=== PATIENT | male | born 1960 | race Asian ===

== ENCOUNTER 2018-10-22 06:46 | Day surgery (SDC) | payer OTHER ==
[2018-10-22] MEDS ORDERED: FENTAnyl 50 MCG/ML VIAL (10:02)
[2018-10-22] MEDS ORDERED: MIDAZOLAM 1 MG/ML 2 ML INJ ×2 (10:02)
== END 2018-10-22 12:31 | disposition home or self-care (01) ==
LOC: GIL 06:46
DX: Z12.11 Encounter for screening for malignant neoplasm of colon (principal); K64.8 Other hemorrhoids; E11.9 Type 2 diabetes mellitus without complications
CPT/HCPCS: 45378; 82962

== ENCOUNTER 2018-10-31 11:50 | Inpatient (IN) | payer OTHER ==
[2018-10-31] MEDS: SODIUM CHLORIDE 0.9% 1L BAG IV* (13:03)
[2018-10-31] MEDS: CEFTRIAXONE 1 GM/50 ML (PMX) 50 ML IVPB (13:03)
[2018-10-31 13:13] LABS: ADD MAN DIFF? NO
[2018-10-31 13:16] LABS: WHITE BLOOD COUNT 7.6 10^3/ul (4.8-10.8)
[2018-10-31 13:16] LABS: ABNORMAL IP MESSAGE 1; BASOPHILS % 0.5 % (0.0-2.0); EOSINOPHILS % 0.4 % (0.0-7.0); HEMATOCRIT 31.6 % (42.0-52.0); HEMOGLOBIN 10.2 g/dl (14.0-18.0); LYMPHOCYTES # 1.8 10^3/ul (0.8-2.9); LYMPHOCYTES % 23.2 % (15.0-51.0); MEAN CORPUSCULAR HEMOGLOBIN 26.6 pg (29.0-33.0); MEAN CORPUSCULAR HGB CONC 32.3 g/dl (32.0-37.0); MEAN CORPUSCULAR VOLUME 82.3 fl (82.0-101.0); MEAN PLATELET VOLUME 10.4 fl (7.4-10.4); MONOCYTE # 1.7 10^3/ul (0.3-0.9); NEUTROPHIL # 4.1 10^3/ul (1.6-7.5); NEUTROPHILS % 53.4 % (39.0-77.0); PLATELET COUNT 190 10^3/UL (140-415); POSITIVE DIFF @See below; RED BLOOD COUNT 3.84 10^6/ul (4.70-6.10); RED CELL DISTRIBUTION WIDTH 16.1 % (11.5-14.5)
[2018-10-31 13:26] LABS: ADD UMIC YES; UR ASCORBIC ACID NEGATIVE (NEGATIVE); UR BACTERIA FEW /HPF (NONE SEEN); UR BILIRUBIN (Dip) NEGATIVE (NEGATIVE); UR BLOOD (Dip) 1+ mg/dL (NEGATIVE); UR CLARITY CLEAR (CLEAR); UR COLOR AMBER (YELLOW); UR GLUCOSE (Dip) NEGATIVE (NEGATIVE); UR KETONES (Dip) TRACE mg/dL (NEGATIVE); UR LEUKOCYTE ESTERASE (Dip) NEGATIVE Leu/ul (NEGATIVE); UR MUCUS FEW /HPF (NONE SEEN); UR NITRITE (Dip) NEGATIVE (NEGATIVE); UR RBC 3 /HPF (0-5); UR SPECIFIC GRAVITY (Dip) 1.015 (1.003-1.030); UR TOTAL PROTEIN (Dip) NEGATIVE (NEGATIVE); UR UROBILINOGEN (Dip) NEGATIVE (NEGATIVE); UR WBC 1 /HPF (0-5)
[2018-10-31 13:35] LABS: PROTIME 13.3 Sec (11.9-14.9)
[2018-10-31 13:36] LABS: PARTIAL THROMBOPLASTIN TIME 26.9 Sec (23.0-35.0)
[2018-10-31 13:37] LABS: ALANINE AMINOTRANSFERASE 20 IU/L (13-69); ALBUMIN 4.1 g/dl (3.3-4.9); ALBUMIN/GLOBULIN RATIO 0.91; ALKALINE PHOSPHATASE 166 IU/L (42-121); ANION GAP 9 (5-13); ASPARTATE AMINO TRANSFERASE 43 IU/L (15-46); BILIRUBIN,INDIRECT 0.6 mg/dl (0-1.1); BILIRUBIN,TOTAL 0.6 mg/dl (0.2-1.3); BLOOD UREA NITROGEN 15 mg/dl (7-20); CALCIUM 10.6 mg/dl (8.4-10.2); CARBON DIOXIDE 28 mmol/L (21-31); CHLORIDE 97 mmol/L (97-110); CREATININE 0.84 mg/dl (0.61-1.24); Estimated GFR > 60 mL/min (>60); GLUCOSE 201 mg/dl (70-220); LIPASE 98 U/L (23-300); POTASSIUM 4.7 mmol/L (3.5-5.1); SODIUM 134 mmol/L (135-144); TOTAL PROTEIN 8.6 g/dl (6.1-8.1)
[2018-10-31 13:49] LABS: TROPONIN-I < 0.012 ng/ml (0.000-0.120)
[2018-10-31] MEDS: SOD CHLORIDE 0.9% 1,000 ML IV ×3 (15:26→23:28)
[2018-10-31] MEDS ORDERED: MAGNESIUM HYDROXIDE 30ML CUP PO (15:30)
[2018-10-31] MEDS ORDERED: ACETAMINOPHEN 325 MG TAB PO (15:30)
[2018-10-31] MEDS ORDERED: NACL 0.9% 3 ML SYG IV (15:30)
[2018-10-31] MEDS ORDERED: morphine 4 MG/ML VIAL IV (15:30)
[2018-10-31] MEDS ORDERED: ACETAMINOPHEN 650 MG SUPP PR (15:30)
[2018-10-31] MEDS ORDERED: NA PHOSPHATE/BIPHOS 133 ML ENEMA PR (15:30)
[2018-10-31] MEDS ORDERED: GLUCAGON 1 MG INJ IM (16:30)
[2018-10-31] MEDS ORDERED: GLUCOSE GEL 15 GRAM TUBE PO ×2 (16:30)
[2018-10-31] MEDS ORDERED: DEXTROSE 50% 50 ML SYRINGE IV ×2 (16:30)
[2018-10-31] MEDS ORDERED: GLUCOSE GEL 15 GRAM TUBE BUCCAL (16:30)
[2018-10-31 18:00] LABS: LACTIC ACID 2.1 mmol/L (0.5-2.0)
[2018-10-31] MEDS: FAMOTIDINE 20 MG TAB PO ×2 (21:00→21:42)
[2018-10-31] MEDS: IBUPROFEN 600 MG TAB PO (21:43)
[2018-10-31] MEDS: SODIUM CHLORIDE 0.9% 1L BAG IV (21:45)
[2018-10-31 21:47] LABS: LACTIC ACID 1.7 mmol/L (0.5-2.0)
[2018-10-31] MEDS: INSULIN ASPART [NOVOLOG] 3 ML PEN SC (22:01)
[2018-11-01] MEDS: ACCU-CHEK XX (02:30)
[2018-11-01] MEDS: SOD CHLORIDE 0.9% 1,000 ML IV ×3 (05:42→23:40)
[2018-11-01 06:16] LABS: HEMATOCRIT 28.7 % (42.0-52.0); HEMOGLOBIN 9.1 g/dl (14.0-18.0); MEAN CORPUSCULAR HEMOGLOBIN 26.7 pg (29.0-33.0); MEAN CORPUSCULAR HGB CONC 31.7 g/dl (32.0-37.0); MEAN CORPUSCULAR VOLUME 84.2 fl (82.0-101.0); MEAN PLATELET VOLUME 9.6 fl (7.4-10.4); PLATELET COUNT 158 10^3/UL (140-415); POSITIVE DIFF @See below; RED BLOOD COUNT 3.41 10^6/ul (4.70-6.10); RED CELL DISTRIBUTION WIDTH 16.3 % (11.5-14.5)
[2018-11-01 06:16] LABS: WHITE BLOOD COUNT 5.7 10^3/ul (4.8-10.8)
[2018-11-01 06:23] LABS: ALANINE AMINOTRANSFERASE 20 IU/L (13-69); ALBUMIN 3.2 g/dl (3.3-4.9); ALKALINE PHOSPHATASE 129 IU/L (42-121); ANION GAP 7 (5-13); ASPARTATE AMINO TRANSFERASE 30 IU/L (15-46); BILIRUBIN,INDIRECT 0.6 mg/dl (0-1.1); BILIRUBIN,TOTAL 0.6 mg/dl (0.2-1.3); BLOOD UREA NITROGEN 9 mg/dl (7-20); CALCIUM 9.5 mg/dl (8.4-10.2); CARBON DIOXIDE 28 mmol/L (21-31); CHLORIDE 105 mmol/L (97-110); CREATININE 0.71 mg/dl (0.61-1.24); Estimated GFR > 60 mL/min (>60); GLUCOSE 160 mg/dl (70-220); MAGNESIUM 1.4 mg/dl (1.7-2.5); PHOSPHORUS 3.6 mg/dl (2.5-4.9); POTASSIUM 3.6 mmol/L (3.5-5.1); SODIUM 140 mmol/L (135-144); TOTAL PROTEIN 7.2 g/dl (6.1-8.1)
[2018-11-01 06:32] LABS: TROPONIN-I < 0.012 ng/ml (0.000-0.120)
[2018-11-01 06:39] LABS: HEMOGLOBIN A1C 6.1 % (0-5.9)
[2018-11-01 06:48] LABS: IRON 72 ug/dl (35-150)
[2018-11-01 06:57] LABS: ADD MAN DIFF? YES
[2018-11-01 06:58] LABS: FREE T4 (FREE THYROXINE) 3.84 ng/dl (0.64-1.79); TRIIODOTHYRONINE 1.07 ng/ml (0.97-1.69)
[2018-11-01 06:58] LABS: % IRON SATURATION 28 % SAT (22-52); THYROID STIMULATING HORMONE < 0.015 MIU/L (0.465-4.680); TOTAL IRON BINDING CAPACITY 256 ug/dl (241-421)
[2018-11-01] MEDS: FAMOTIDINE 20 MG TAB PO ×2 (08:05→20:42)
[2018-11-01] MEDS: INSULIN ASPART [NOVOLOG] 3 ML PEN SC ×4 (08:09→20:49)
[2018-11-01] MEDS: ENOXAPARIN 40 MG/0.4 ML SYG SC (08:10)
[2018-11-01 08:23] LABS: ANISOCYTOSIS 1+ (0-0); EOSINOPHILS % (M) 3 % (0-7); GIANT THROMBO% (M) 3 % (0-0); HYPOCHROMASIA 1+ (0-0); LYMPHOCYTES #M 1.9 10^3/ul (0.8-2.9); LYMPHOCYTES % (M) 34 % (15-51); MONOCYTES % (M) 18 % (0-11); PLATELET ESTIMATE NORMAL; POIKILOCYTOSIS 1+ (0-0); POLYCHROMASIA 3+ (0-0); PROMYELOCYTES % (M) 1 % (0-0); SEGMENTED NEUTROPHILS (M) % 44 % (39-77); SMUDGE%M 13 % (0-0)
[2018-11-01] MEDS: METHIMAZOLE 5 MG TAB PO ×2 (17:22→20:42)
[2018-11-01] MEDS: ONDANSETRON 4 MG INJ IV (19:28)
[2018-11-01] MEDS: HYDROCODONE/APAP (5/325) TAB PO (19:32)
[2018-11-02] MEDS: MAGNESIUM SULFATE 3 GM in SOD CHLORIDE 0.9% 100 ML IVPB (00:19)
[2018-11-02] MEDS: ACCU-CHEK XX (02:30)
[2018-11-02 05:41] LABS: ADD MAN DIFF? NO
[2018-11-02 05:51] LABS: BASOPHILS % 0.3 % (0.0-2.0); EOSINOPHILS # 0.1 10^3/ul (0.0-0.5); EOSINOPHILS % 2.1 % (0.0-7.0); HEMATOCRIT 29.9 % (42.0-52.0); HEMOGLOBIN 9.6 g/dl (14.0-18.0); LYMPHOCYTES # 2.1 10^3/ul (0.8-2.9); LYMPHOCYTES % 33.5 % (15.0-51.0); MEAN CORPUSCULAR HEMOGLOBIN 26.7 pg (29.0-33.0); MEAN CORPUSCULAR HGB CONC 32.1 g/dl (32.0-37.0); MEAN CORPUSCULAR VOLUME 83.1 fl (82.0-101.0); MEAN PLATELET VOLUME 10.2 fl (7.4-10.4); MONOCYTE # 1.3 10^3/ul (0.3-0.9); MONOCYTES % 21.4 % (0.0-11.0); NEUTROPHIL # 2.7 10^3/ul (1.6-7.5); NEUTROPHILS % 42.2 % (39.0-77.0); PLATELET COUNT 178 10^3/UL (140-415); RED CELL DISTRIBUTION WIDTH 16.1 % (11.5-14.5)
[2018-11-02 05:51] LABS: WHITE BLOOD COUNT 6.3 10^3/ul (4.8-10.8)
[2018-11-02 06:13] LABS: ANION GAP 10 (5-13); BLOOD UREA NITROGEN 8 mg/dl (7-20); CARBON DIOXIDE 28 mmol/L (21-31); CHLORIDE 100 mmol/L (97-110); CREATININE 0.73 mg/dl (0.61-1.24); Estimated GFR > 60 mL/min (>60); GLUCOSE 127 mg/dl (70-220); MAGNESIUM 2.1 mg/dl (1.7-2.5); POTASSIUM 4.3 mmol/L (3.5-5.1); SODIUM 138 mmol/L (135-144)
[2018-11-02] MEDS: SOD CHLORIDE 0.9% 1,000 ML IV ×4 (07:28→22:44)
[2018-11-02 07:36] LABS: C-REACTIVE PROTEIN 5.7 mg/dl (0.0-0.9)
[2018-11-02] MEDS: INSULIN ASPART [NOVOLOG] 3 ML PEN SC ×4 (08:00→20:37)
[2018-11-02] MEDS: METHIMAZOLE 5 MG TAB PO ×2 (08:03→20:34)
[2018-11-02] MEDS: FAMOTIDINE 20 MG TAB PO ×2 (08:03→20:31)
[2018-11-02] MEDS: ENOXAPARIN 40 MG/0.4 ML SYG SC (08:05)
[2018-11-02 08:12] LABS: ERYTHROCYTE SEDIMENTATION RATE 110 mm/Hr (0-20)
[2018-11-03] MEDS: ACCU-CHEK XX (02:00)
[2018-11-03] MEDS: SOD CHLORIDE 0.9% 1,000 ML IV ×2 (04:19→13:06)
[2018-11-03] MEDS: INSULIN ASPART [NOVOLOG] 3 ML PEN SC ×4 (08:00→20:54)
[2018-11-03] MEDS: FAMOTIDINE 20 MG TAB PO ×2 (08:39→20:43)
[2018-11-03] MEDS: METHIMAZOLE 5 MG TAB PO ×2 (08:40→20:44)
[2018-11-03] MEDS: ENOXAPARIN 40 MG/0.4 ML SYG SC (08:42)
[2018-11-03] MEDS: DOCUSATE SODIUM 100 MG CAP PO ×2 (09:01→20:52)
[2018-11-03] MEDS: BISACODYL (EC) 5 MG TAB PO (09:01)
[2018-11-03] MEDS: BISACODYL 10 MG SUPP PR (12:34)
[2018-11-03 19:31] LABS: NIL 0.03 IU/mL; QUANTIFERON(R)-TB GOLD POSITIVE (NEGATIVE); TB-NIL 1.12 IU/mL; TB2-NIL 1.16 IU/mL
[2018-11-04] MEDS: ACCU-CHEK XX (02:00)
[2018-11-04] MEDS: FAMOTIDINE 20 MG TAB PO ×2 (08:15→20:28)
[2018-11-04] MEDS: INSULIN ASPART [NOVOLOG] 3 ML PEN SC ×4 (08:19→20:34)
[2018-11-04] MEDS: ENOXAPARIN 40 MG/0.4 ML SYG SC (08:19)
[2018-11-04] MEDS: METHIMAZOLE 5 MG TAB PO ×2 (08:21→20:28)
[2018-11-04] MEDS: BISACODYL (EC) 5 MG TAB PO (08:25)
[2018-11-04] MEDS: metFORMIN 500 MG TAB PO (17:37)
[2018-11-05] MEDS: ACCU-CHEK XX (02:00)
[2018-11-05] MEDS: FAMOTIDINE 20 MG TAB PO (09:05)
[2018-11-05] MEDS: metFORMIN 500 MG TAB PO (09:05)
[2018-11-05] MEDS: METHIMAZOLE 5 MG TAB PO (09:05)
[2018-11-05] MEDS: INSULIN ASPART [NOVOLOG] 3 ML PEN SC ×2 (09:07→13:33)
[2018-11-05] MEDS: ENOXAPARIN 40 MG/0.4 ML SYG SC (09:08)
== END 2018-11-05 15:30 | disposition home or self-care (01) | DRG 644 ==
LOC: E/R 11:50 → 2NE 14:02
PROVIDERS: Internal Medicine
DX: E05.00 Thyrotoxicosis with diffuse goiter without thyrotoxic crisis or storm (principal); K92.0 Hematemesis; R62.7 Adult failure to thrive; R11.2 Nausea with vomiting, unspecified; Z68.24 Body mass index [BMI] 24.0-24.9, adult; R63.4 Abnormal weight loss; R79.89 Other specified abnormal findings of blood chemistry; E11.9 Type 2 diabetes mellitus without complications; D64.9 Anemia, unspecified
CPT/HCPCS: 36415; 70450; 71045; 71250; 74176; 80048; 80053; 81001; 82728; 82962; 83036; 83540; 83605; 83690; 83735; 84100; 84439; 84443; 84480; 84484; 85025; 85610; 85651; 85730; 86140; 86480; 87040; 87086; 87338; 87400; 93005; 93306; 96365; 99291-25

== ENCOUNTER 2018-11-17 16:34 | Inpatient (IN) | payer OTHER ==
[2018-11-17 18:43] LABS: ABNORMAL IP MESSAGE 1; HEMATOCRIT 33.3 % (42.0-52.0); HEMOGLOBIN 10.3 g/dl (14.0-18.0); MEAN CORPUSCULAR HEMOGLOBIN 25.6 pg (29.0-33.0); MEAN CORPUSCULAR HGB CONC 30.9 g/dl (32.0-37.0); MEAN CORPUSCULAR VOLUME 82.6 fl (82.0-101.0); MEAN PLATELET VOLUME 10.1 fl (7.4-10.4); PLATELET COUNT 186 10^3/UL (140-415); POSITIVE DIFF @See below; RED BLOOD COUNT 4.03 10^6/ul (4.70-6.10); RED CELL DISTRIBUTION WIDTH 15.5 % (11.5-14.5)
[2018-11-17 18:43] LABS: WHITE BLOOD COUNT 8.1 10^3/ul (4.8-10.8)
[2018-11-17 18:46] LABS: PROTIME 13.3 Sec (11.9-14.9)
[2018-11-17 18:47] LABS: ADD MAN DIFF? YES; PARTIAL THROMBOPLASTIN TIME 29.4 Sec (23.0-35.0)
[2018-11-17 18:51] LABS: ALANINE AMINOTRANSFERASE 17 IU/L (13-69); ALBUMIN 3.6 g/dl (3.3-4.9); ALBUMIN/GLOBULIN RATIO 0.81; ALKALINE PHOSPHATASE 170 IU/L (42-121); AMYLASE 67 U/L (11-123); ANION GAP 11 (5-13); ASPARTATE AMINO TRANSFERASE 43 IU/L (15-46); BILIRUBIN,INDIRECT 0.3 mg/dl (0-1.1); BILIRUBIN,TOTAL 0.3 mg/dl (0.2-1.3); BLOOD UREA NITROGEN 12 mg/dl (7-20); CALCIUM 10.7 mg/dl (8.4-10.2); CARBON DIOXIDE 31 mmol/L (21-31); CHLORIDE 97 mmol/L (97-110); CREATININE 0.85 mg/dl (0.61-1.24); Estimated GFR > 60 mL/min (>60); GLUCOSE 110 mg/dl (70-220); LIPASE 71 U/L (23-300); POTASSIUM 4.3 mmol/L (3.5-5.1); SODIUM 139 mmol/L (135-144)
[2018-11-17 19:02] LABS: TROPONIN-I < 0.012 ng/ml (0.000-0.120)
[2018-11-17] MEDS: SODIUM CHLORIDE 0.9% 1L BAG IV* (19:06)
[2018-11-17] MEDS: ACETAMINOPHEN 500 MG TAB PO (19:11)
[2018-11-17] MEDS: CEFEPIME 2GM/50 ML (PMX) 50 ML IVPB (19:47)
[2018-11-17] MEDS: VANCOMYCIN 1 GM (PMX) 250 ML IVPB (20:17)
[2018-11-17 20:33] LABS: LYMPHOCYTES #M 1.1 10^3/ul (0.8-2.9); LYMPHOCYTES % (M) 14 % (15-51); MONOCYTES % (M) 13 % (0-11); PLATELET ESTIMATE NORMAL; REACTIVE LYMPHOCYTES #M 0.2 10^3/ul (0.0-0.0); REACTIVE LYMPHOCYTES% (M) 3 % (0-0); SEGMENTED NEUTROPHILS (M) % 70 % (39-77); SMUDGE%M 6 % (0-0)
[2018-11-17 20:41] LABS: FREE THYROXINE INDEX (Calc) 11.24 ug/ml (0.65-3.89); T3 UPTAKE 61.4 % (23.5-40.5); T4 (THYROXINE) 18.3 ug/dl (5.5-11.0)
[2018-11-17 20:54] LABS: ADD UMIC NO; UR ASCORBIC ACID NEGATIVE (NEGATIVE); UR BILIRUBIN (Dip) NEGATIVE (NEGATIVE); UR BLOOD (Dip) NEGATIVE (NEGATIVE); UR CLARITY CLEAR (CLEAR); UR COLOR YELLOW (YELLOW); UR GLUCOSE (Dip) NEGATIVE (NEGATIVE); UR KETONES (Dip) TRACE mg/dL (NEGATIVE); UR LEUKOCYTE ESTERASE (Dip) NEGATIVE Leu/ul (NEGATIVE); UR NITRITE (Dip) NEGATIVE (NEGATIVE); UR TOTAL PROTEIN (Dip) NEGATIVE (NEGATIVE); UR UROBILINOGEN (Dip) NEGATIVE (NEGATIVE)
[2018-11-17 21:45] LABS: THYROID STIMULATING HORMONE < 0.015 MIU/L (0.465-4.680)
[2018-11-17] MEDS: PROPRANOLOL 1 MG INJ IV (22:50)
[2018-11-17] MEDS ORDERED: ONDANSETRON 4 MG INJ IV (23:00)
[2018-11-17] MEDS ORDERED: ACETAMINOPHEN 325 MG TAB PO (23:00)
[2018-11-17] MEDS ORDERED: DOCUSATE SODIUM 100 MG CAP PO (23:30)
[2018-11-17] MEDS ORDERED: NACL 0.9% 3 ML SYG IV (23:30)
[2018-11-17] MEDS ORDERED: VANCOMYCIN IV PER PHARMACY XX (23:30)
[2018-11-18] MEDS ORDERED: METHIMAZOLE 5 MG TAB PO (02:00)
[2018-11-18] MEDS: METHIMAZOLE 5 MG TAB PO (02:00)
[2018-11-18] MEDS: ONDANSETRON 4 MG INJ IV (03:36)
[2018-11-18] MEDS: VANCOMYCIN HCL 1.25 GM in SOD CHLORIDE 0.9% 250 ML IVPB ×2 (04:16→15:11)
[2018-11-18] MEDS: PROPRANOLOL 40 MG TAB PO (05:28)
[2018-11-18] MEDS ORDERED: GLUCAGON 1 MG INJ IM (06:30)
[2018-11-18] MEDS ORDERED: GLUCOSE GEL 15 GRAM TUBE BUCCAL (06:30)
[2018-11-18] MEDS ORDERED: GLUCOSE GEL 15 GRAM TUBE PO ×2 (06:30)
[2018-11-18] MEDS ORDERED: DEXTROSE 50% 50 ML SYRINGE IV ×2 (06:30)
[2018-11-18 06:46] LABS: ABNORMAL IP MESSAGE 1; HEMATOCRIT 28.1 % (42.0-52.0); MEAN CORPUSCULAR HEMOGLOBIN 26.5 pg (29.0-33.0); MEAN CORPUSCULAR VOLUME 82.9 fl (82.0-101.0); MEAN PLATELET VOLUME 9.9 fl (7.4-10.4); PLATELET COUNT 157 10^3/UL (140-415); POSITIVE DIFF @See below; RED BLOOD COUNT 3.39 10^6/ul (4.70-6.10); RED CELL DISTRIBUTION WIDTH 15.7 % (11.5-14.5)
[2018-11-18 06:46] LABS: WHITE BLOOD COUNT 7.2 10^3/ul (4.8-10.8)
[2018-11-18 06:52] LABS: ADD MAN DIFF? YES
[2018-11-18 07:38] LABS: ALANINE AMINOTRANSFERASE 24 IU/L (13-69); ALBUMIN 2.8 g/dl (3.3-4.9); ALBUMIN/GLOBULIN RATIO 0.73; ALKALINE PHOSPHATASE 120 IU/L (42-121); ANION GAP 4 (5-13); ASPARTATE AMINO TRANSFERASE 33 IU/L (15-46); BILIRUBIN,INDIRECT 0.2 mg/dl (0-1.1); BILIRUBIN,TOTAL 0.2 mg/dl (0.2-1.3); BLOOD UREA NITROGEN 10 mg/dl (7-20); CALCIUM 9.6 mg/dl (8.4-10.2); CARBON DIOXIDE 30 mmol/L (21-31); CHLORIDE 104 mmol/L (97-110); CREATININE 0.65 mg/dl (0.61-1.24); Estimated GFR > 60 mL/min (>60); GLUCOSE 123 mg/dl (70-220); SODIUM 138 mmol/L (135-144); TOTAL PROTEIN 6.6 g/dl (6.1-8.1)
[2018-11-18] MEDS: INSULIN ASPART [NOVOLOG] 3 ML PEN SC ×4 (07:55→21:00)
[2018-11-18 07:59] LABS: MAGNESIUM 1.1 mg/dl (1.7-2.5)
[2018-11-18 08:18] LABS: FREE T4 (FREE THYROXINE) 5.12 ng/dl (0.64-1.79)
[2018-11-18 08:35] LABS: C-REACTIVE PROTEIN 6.2 mg/dl (0.0-0.9)
[2018-11-18] MEDS: MAGNESIUM SULFATE 4 GM/100 ML 100 ML IVPB (09:17)
[2018-11-18] MEDS: PROPRANOLOL 20 MG TAB PO ×3 (09:18→21:43)
[2018-11-18] MEDS: CEFEPIME 2GM/50 ML (PMX) 50 ML IVPB ×2 (09:18→21:42)
[2018-11-18 09:19] LABS: EOSINOPHILS % (M) 1 % (0-7); GIANT THROMBO% (M) 5 % (0-0); LYMPHOCYTES #M 0.9 10^3/ul (0.8-2.9); LYMPHOCYTES % (M) 13 % (15-51); MONOCYTE #M 1.2 10^3/ul (0.3-0.9); MONOCYTES % (M) 17 % (0-11); MYELOCYTES % (M) 1 % (0-0); REACTIVE LYMPHOCYTES #M 0.5 10^3/ul (0.0-0.0); REACTIVE LYMPHOCYTES% (M) 7 % (0-0); SEGMENTED NEUTROPHILS (M) % 61 % (39-77); SMUDGE%M 65 % (0-0)
[2018-11-18 09:22] LABS: PLATELET ESTIMATE NORMAL
[2018-11-18 09:23] LABS: ERYTHROCYTE SEDIMENTATION RATE 79 mm/Hr (0-20)
[2018-11-18] MEDS: PROPYLTHIOURACIL 50 MG TAB PO (14:08)
[2018-11-18] MEDS: DOCUSATE SODIUM 100 MG CAP PO (21:43)
[2018-11-19] MEDS: ACCU-CHEK XX (02:00)
[2018-11-19] MEDS: VANCOMYCIN HCL 1.25 GM in SOD CHLORIDE 0.9% 250 ML IVPB ×2 (03:09→14:57)
[2018-11-19] MEDS: PROPRANOLOL 20 MG TAB PO ×4 (03:18→21:38)
[2018-11-19 06:53] LABS: WHITE BLOOD COUNT 6.8 10^3/ul (4.8-10.8)
[2018-11-19 06:53] LABS: ABNORMAL IP MESSAGE 1; HEMATOCRIT 27.9 % (42.0-52.0); MEAN CORPUSCULAR HEMOGLOBIN 26.1 pg (29.0-33.0); MEAN CORPUSCULAR HGB CONC 32.3 g/dl (32.0-37.0); MEAN CORPUSCULAR VOLUME 80.9 fl (82.0-101.0); MEAN PLATELET VOLUME 9.6 fl (7.4-10.4); PLATELET COUNT 156 10^3/UL (140-415); POSITIVE DIFF @See below; RED BLOOD COUNT 3.45 10^6/ul (4.70-6.10); RED CELL DISTRIBUTION WIDTH 15.4 % (11.5-14.5)
[2018-11-19 06:56] LABS: ADD MAN DIFF? YES
[2018-11-19 07:10] LABS: ANION GAP 7 (5-13); BLOOD UREA NITROGEN 8 mg/dl (7-20); CALCIUM 9.6 mg/dl (8.4-10.2); CARBON DIOXIDE 31 mmol/L (21-31); CHLORIDE 97 mmol/L (97-110); CREATININE 0.67 mg/dl (0.61-1.24); Estimated GFR > 60 mL/min (>60); GLUCOSE 240 mg/dl (70-220); MAGNESIUM 1.7 mg/dl (1.7-2.5); POTASSIUM 4.1 mmol/L (3.5-5.1); SODIUM 135 mmol/L (135-144)
[2018-11-19 07:13] LABS: HEMOGLOBIN A1C 5.6 % (0-5.9)
[2018-11-19 08:15] LABS: ANISOCYTOSIS 1+ (0-0); BAND NEUTROPHILS % (M) 1 % (0-4); BASOPHILS % (M) 1 % (0-2); EOSINOPHILS % (M) 1 % (0-7); HYPOCHROMASIA 2+ (0-0); LYMPHOCYTES #M 1.4 10^3/ul (0.8-2.9); LYMPHOCYTES % (M) 21 % (15-51); MICROCYTOSIS 1+ (0-0); MONOCYTE #M 1.9 10^3/ul (0.3-0.9); MONOCYTES % (M) 28 % (0-11); MYELOCYTES % (M) 1 % (0-0); PLATELET ESTIMATE NORMAL; POIKILOCYTOSIS 1+ (0-0); POLYCHROMASIA 3+ (0-0); REACTIVE LYMPHOCYTES% (M) 1 % (0-0); SEG NEUT #M 3.1 10^3/ul (1.6-7.5); SEGMENTED NEUTROPHILS (M) % 46 % (39-77); SMUDGE%M 11 % (0-0); TARGET CELLS 1+ (0-0)
[2018-11-19] MEDS: DOCUSATE SODIUM 100 MG CAP PO ×2 (09:14→21:37)
[2018-11-19] MEDS: INSULIN GLARGINE [LANTus] (100 UNITS/ML) SYG SC (09:15)
[2018-11-19] MEDS: INSULIN ASPART [NOVOLOG] 3 ML PEN SC ×4 (09:16→21:52)
[2018-11-19] MEDS: CEFEPIME 2GM/50 ML (PMX) 50 ML IVPB ×2 (09:20→21:38)
[2018-11-19] MEDS: METHIMAZOLE 5 MG TAB PO (09:20)
[2018-11-19 12:22] LABS: THYROID MICROSOMAL ANTIBODY <1 IU/mL (<9)
[2018-11-19] MEDS: PROPYLTHIOURACIL 50 MG TAB PO (14:28)
[2018-11-19 15:23] LABS: VANCOMYCIN,TROUGH 13.2 ug/ml (10.0-20.0)
[2018-11-19] MEDS: BISACODYL (EC) 5 MG TAB PO (21:37)
[2018-11-20] MEDS: ACCU-CHEK XX ×3 (02:00→21:17)
[2018-11-20] MEDS: VANCOMYCIN HCL 1.25 GM in SOD CHLORIDE 0.9% 250 ML IVPB ×2 (03:17→14:44)
[2018-11-20] MEDS: PROPRANOLOL 20 MG TAB PO ×4 (03:18→20:54)
[2018-11-20 07:11] LABS: WHITE BLOOD COUNT 6.5 10^3/ul (4.8-10.8)
[2018-11-20 07:11] LABS: ABNORMAL IP MESSAGE 1; ADD MAN DIFF? YES; HEMATOCRIT 29.3 % (42.0-52.0); HEMOGLOBIN 9.3 g/dl (14.0-18.0); MEAN CORPUSCULAR HGB CONC 31.7 g/dl (32.0-37.0); MEAN CORPUSCULAR VOLUME 81.8 fl (82.0-101.0); MEAN PLATELET VOLUME 10.1 fl (7.4-10.4); PLATELET COUNT 152 10^3/UL (140-415); POSITIVE DIFF @See below; RED BLOOD COUNT 3.58 10^6/ul (4.70-6.10); RED CELL DISTRIBUTION WIDTH 15.4 % (11.5-14.5)
[2018-11-20 07:28] LABS: ANION GAP 7 (5-13); BLOOD UREA NITROGEN 8 mg/dl (7-20); CARBON DIOXIDE 33 mmol/L (21-31); CHLORIDE 95 mmol/L (97-110); CREATININE 0.68 mg/dl (0.61-1.24); Estimated GFR > 60 mL/min (>60); GLUCOSE 261 mg/dl (70-220); POTASSIUM 3.9 mmol/L (3.5-5.1); SODIUM 135 mmol/L (135-144)
[2018-11-20] MEDS: BISACODYL (EC) 5 MG TAB PO (08:01)
[2018-11-20] MEDS: DOCUSATE SODIUM 100 MG CAP PO ×2 (08:01→20:54)
[2018-11-20] MEDS: CEFEPIME 2GM/50 ML (PMX) 50 ML IVPB ×2 (08:01→20:53)
[2018-11-20 08:05] LABS: HIV 1&2 ANTIBODY NEGATIVE (NEGATIVE)
[2018-11-20] MEDS: INSULIN ASPART [NOVOLOG] 3 ML PEN SC ×7 (08:14→21:16)
[2018-11-20] MEDS: METHIMAZOLE 5 MG TAB PO (08:55)
[2018-11-20 09:04] LABS: ANISOCYTOSIS 1+ (0-0); EOSINOPHILS % (M) 1 % (0-7); GIANT THROMBO% (M) 1 % (0-0); HYPOCHROMASIA 2+ (0-0); LYMPHOCYTES #M 1.6 10^3/ul (0.8-2.9); LYMPHOCYTES % (M) 25 % (15-51); MICROCYTOSIS 1+ (0-0); MONOCYTE #M 0.7 10^3/ul (0.3-0.9); MONOCYTES % (M) 11 % (0-11); PLATELET ESTIMATE NORMAL; POIKILOCYTOSIS 1+ (0-0); POLYCHROMASIA 3+ (0-0); SEGMENTED NEUTROPHILS (M) % 63 % (39-77); SMUDGE%M 8 % (0-0)
[2018-11-20] MEDS: INSULIN GLARGINE [LANTus] (100 UNITS/ML) SYG SC (10:09)
[2018-11-20] MEDS: POLYETHYLENE GLYCOL 17 GM PACKET PO (10:35)
[2018-11-20] MEDS: MAGNESIUM CITRATE 300 ML BTL PO (12:40)
[2018-11-20] MEDS: metFORMIN 500 MG TAB PO ×2 (14:45→17:48)
[2018-11-21] MEDS: VANCOMYCIN HCL 1.25 GM in SOD CHLORIDE 0.9% 250 ML IVPB (02:47)
[2018-11-21] MEDS: ACCU-CHEK XX ×5 (02:52→20:44)
[2018-11-21] MEDS: PROPRANOLOL 20 MG TAB PO ×4 (02:53→20:44)
[2018-11-21] MEDS: METHIMAZOLE 5 MG TAB PO (06:48)
[2018-11-21 08:11] LABS: ABNORMAL IP MESSAGE 1; HEMATOCRIT 31.9 % (42.0-52.0); MEAN CORPUSCULAR HGB CONC 31.3 g/dl (32.0-37.0); MEAN CORPUSCULAR VOLUME 82.9 fl (82.0-101.0); MEAN PLATELET VOLUME 9.7 fl (7.4-10.4); PLATELET COUNT 159 10^3/UL (140-415); POSITIVE DIFF @See below; RED BLOOD COUNT 3.85 10^6/ul (4.70-6.10); RED CELL DISTRIBUTION WIDTH 15.6 % (11.5-14.5)
[2018-11-21 08:11] LABS: WHITE BLOOD COUNT 7.9 10^3/ul (4.8-10.8)
[2018-11-21 08:21] LABS: ADD MAN DIFF? YES
[2018-11-21 08:40] LABS: ANION GAP 9 (5-13); BLOOD UREA NITROGEN 12 mg/dl (7-20); CALCIUM 10.1 mg/dl (8.4-10.2); CARBON DIOXIDE 33 mmol/L (21-31); CHLORIDE 95 mmol/L (97-110); CREATININE 0.77 mg/dl (0.61-1.24); Estimated GFR > 60 mL/min (>60); GLUCOSE 177 mg/dl (70-220); POTASSIUM 4.2 mmol/L (3.5-5.1); SODIUM 137 mmol/L (135-144)
[2018-11-21] MEDS: DOCUSATE SODIUM 100 MG CAP PO ×2 (09:00→20:43)
[2018-11-21] MEDS: POLYETHYLENE GLYCOL 17 GM PACKET PO (09:00)
[2018-11-21] MEDS: metFORMIN 500 MG TAB PO ×2 (09:39→17:46)
[2018-11-21] MEDS: CEFEPIME 2GM/50 ML (PMX) 50 ML IVPB (09:40)
[2018-11-21] MEDS: INSULIN GLARGINE [LANTus] (100 UNITS/ML) SYG SC (09:59)
[2018-11-21] MEDS: INSULIN ASPART [NOVOLOG] 3 ML PEN SC ×6 (10:00→20:44)
[2018-11-21] MEDS: CLARITHROMYCIN 500 MG TAB PO ×2 (12:47→20:44)
[2018-11-21] MEDS: AMOXICILLIN 500 MG CAP PO ×2 (12:48→20:44)
[2018-11-21] MEDS: PANTOPRAZOLE (EC) 40 MG TAB PO (17:46)
[2018-11-21 21:36] LABS: CRYPTOCOCCAL ANTIGEN - SOURCE SERUM
[2018-11-22] MEDS: ACCU-CHEK XX ×5 (02:00→21:00)
[2018-11-22] MEDS: PROPRANOLOL 20 MG TAB PO ×4 (03:34→21:00)
[2018-11-22] MEDS: PANTOPRAZOLE (EC) 40 MG TAB PO ×2 (06:29→17:45)
[2018-11-22] MEDS: METHIMAZOLE 5 MG TAB PO ×2 (06:30→18:40)
[2018-11-22 07:11] LABS: FREE T4 (FREE THYROXINE) 6.82 ng/dl (0.64-1.79)
[2018-11-22] MEDS: INSULIN ASPART [NOVOLOG] 3 ML PEN SC ×7 (07:55→21:00)
[2018-11-22] MEDS: CLARITHROMYCIN 500 MG TAB PO ×2 (08:19→21:00)
[2018-11-22] MEDS: AMOXICILLIN 500 MG CAP PO ×2 (08:19→21:00)
[2018-11-22] MEDS: metFORMIN 500 MG TAB PO ×2 (08:20→17:46)
[2018-11-22 08:29] LABS: T4 (THYROXINE) 19.9 ug/dl (5.5-11.0)
[2018-11-22 08:42] LABS: TRIIODOTHYRONINE 1.94 ng/ml (0.97-1.69)
[2018-11-22] MEDS: INSULIN GLARGINE [LANTus] (100 UNITS/ML) SYG SC (08:42)
[2018-11-22] MEDS: DOCUSATE SODIUM 100 MG CAP PO ×2 (09:00→21:00)
[2018-11-22] MEDS: POLYETHYLENE GLYCOL 17 GM PACKET PO (09:00)
[2018-11-22 10:14] LABS: THYROID STIMULATING HORMONE < 0.015 MIU/L (0.465-4.680)
[2018-11-22 11:55] LABS: PROCALCITONIN <0.10 ng/mL (<0.10)
[2018-11-22] MEDS: ACETAMINOPHEN 325 MG TAB PO (12:17)
[2018-11-22 19:49] LABS: MONOTEST Negative (NEG)
[2018-11-22] MEDS: ONDANSETRON 4 MG INJ IV ×2 (20:16→20:18)
[2018-11-22 21:00] LABS: ADD UMIC NO; UR ASCORBIC ACID NEGATIVE (NEGATIVE); UR BILIRUBIN (Dip) NEGATIVE (NEGATIVE); UR BLOOD (Dip) NEGATIVE (NEGATIVE); UR CLARITY CLEAR (CLEAR); UR COLOR YELLOW (YELLOW); UR GLUCOSE (Dip) NEGATIVE (NEGATIVE); UR KETONES (Dip) NEGATIVE (NEGATIVE); UR LEUKOCYTE ESTERASE (Dip) NEGATIVE Leu/ul (NEGATIVE); UR NITRITE (Dip) NEGATIVE (NEGATIVE); UR SPECIFIC GRAVITY (Dip) 1.011 (1.003-1.030); UR TOTAL PROTEIN (Dip) NEGATIVE (NEGATIVE); UR UROBILINOGEN (Dip) 1+ mg/dL (NEGATIVE)
[2018-11-23] MEDS: ACETAMINOPHEN 325 MG TAB PO ×3 (00:42→19:51)
[2018-11-23] MEDS: ACCU-CHEK XX ×5 (02:00→21:00)
[2018-11-23] MEDS: PROPRANOLOL 20 MG TAB PO ×4 (03:00→21:00)
[2018-11-23] MEDS: PANTOPRAZOLE (EC) 40 MG TAB PO ×2 (05:32→17:33)
[2018-11-23] MEDS: INSULIN ASPART [NOVOLOG] 3 ML PEN SC ×8 (07:55→21:00)
[2018-11-23] MEDS: metFORMIN 500 MG TAB PO ×2 (08:59→17:33)
[2018-11-23] MEDS: DOCUSATE SODIUM 100 MG CAP PO ×2 (08:59→21:09)
[2018-11-23] MEDS: METHIMAZOLE 5 MG TAB PO ×2 (09:00→19:51)
[2018-11-23] MEDS: POLYETHYLENE GLYCOL 17 GM PACKET PO (09:01)
[2018-11-23] MEDS: CLARITHROMYCIN 500 MG TAB PO ×2 (09:01→21:09)
[2018-11-23] MEDS: AMOXICILLIN 500 MG CAP PO ×2 (09:01→21:09)
[2018-11-23] MEDS: INSULIN GLARGINE [LANTus] (100 UNITS/ML) SYG SC (09:08)
[2018-11-24] MEDS: ACCU-CHEK XX ×5 (02:00→21:04)
[2018-11-24] MEDS: PROPRANOLOL 20 MG TAB PO ×4 (03:47→21:03)
[2018-11-24] MEDS: PANTOPRAZOLE (EC) 40 MG TAB PO ×2 (05:59→17:38)
[2018-11-24] MEDS: METHIMAZOLE 5 MG TAB PO ×2 (07:31→21:46)
[2018-11-24] MEDS: metFORMIN 500 MG TAB PO ×2 (07:31→17:38)
[2018-11-24] MEDS: INSULIN ASPART [NOVOLOG] 3 ML PEN SC ×7 (07:31→21:00)
[2018-11-24] MEDS: INSULIN GLARGINE [LANTus] (100 UNITS/ML) SYG SC (08:27)
[2018-11-24] MEDS: AMOXICILLIN 500 MG CAP PO ×2 (10:04→21:04)
[2018-11-24] MEDS: CLARITHROMYCIN 500 MG TAB PO ×2 (10:04→21:04)
[2018-11-24] MEDS: DOCUSATE SODIUM 100 MG CAP PO ×2 (10:05→21:04)
[2018-11-24] MEDS: POLYETHYLENE GLYCOL 17 GM PACKET PO (10:05)
[2018-11-24] MEDS: PROPYLTHIOURACIL 50 MG TAB PO (14:31)
[2018-11-24 18:47] LABS: EBV VIRAL CAPSID AG AB (IGM) <36.00 U/mL
[2018-11-24] MEDS: ACETAMINOPHEN 325 MG TAB PO (21:03)
[2018-11-25] MEDS: ACCU-CHEK XX ×5 (02:00→20:45)
[2018-11-25] MEDS: PROPRANOLOL 20 MG TAB PO ×4 (02:37→20:41)
[2018-11-25] MEDS: PANTOPRAZOLE (EC) 40 MG TAB PO ×2 (06:17→17:47)
[2018-11-25 07:10] LABS: FREE T3 8.49 pg/ml (2.77-5.27)
[2018-11-25 07:29] LABS: FREE T4 (FREE THYROXINE) > 6.99 ng/dl (0.64-1.79)
[2018-11-25] MEDS: INSULIN ASPART [NOVOLOG] 3 ML PEN SC ×7 (08:00→20:45)
[2018-11-25] MEDS: INSULIN GLARGINE [LANTus] (100 UNITS/ML) SYG SC (08:54)
[2018-11-25] MEDS: POLYETHYLENE GLYCOL 17 GM PACKET PO (08:55)
[2018-11-25] MEDS: ENOXAPARIN 40 MG/0.4 ML SYG SC (08:55)
[2018-11-25] MEDS: DOCUSATE SODIUM 100 MG CAP PO ×2 (08:56→20:42)
[2018-11-25] MEDS: AMOXICILLIN 500 MG CAP PO ×2 (08:56→20:42)
[2018-11-25] MEDS: CLARITHROMYCIN 500 MG TAB PO ×2 (08:57→20:42)
[2018-11-25] MEDS: metFORMIN 500 MG TAB PO ×2 (08:57→17:47)
[2018-11-25] MEDS: METHIMAZOLE 5 MG TAB PO ×2 (08:58→18:28)
[2018-11-25] MEDS: ACETAMINOPHEN 325 MG TAB PO (08:58)
[2018-11-25 10:53] LABS: CMV DNA QL SOURCE WHOLE BLOOD
[2018-11-25 12:32] LABS: HERPES SIMPLEX 1 DNA NOT DETECTED; HERPES SIMPLEX 2 DNA NOT DETECTED; HERPES SIMPLEX PCR SOURCE SERUM
[2018-11-25] MEDS: MEROPENEM 1 GM/50ML(PMX) 50 ML IVPB ×2 (13:11→20:42)
[2018-11-26] MEDS: ACCU-CHEK XX ×3 (01:50→11:30)
[2018-11-26] MEDS: PROPRANOLOL 20 MG TAB PO ×2 (03:00→08:58)
[2018-11-26] MEDS: PANTOPRAZOLE (EC) 40 MG TAB PO (06:10)
[2018-11-26] MEDS: INSULIN ASPART [NOVOLOG] 3 ML PEN SC ×4 (08:00→13:08)
[2018-11-26] MEDS: CLARITHROMYCIN 500 MG TAB PO (08:57)
[2018-11-26] MEDS: AMOXICILLIN 500 MG CAP PO (08:57)
[2018-11-26] MEDS: metFORMIN 500 MG TAB PO (08:57)
[2018-11-26] MEDS: POLYETHYLENE GLYCOL 17 GM PACKET PO (08:58)
[2018-11-26] MEDS: METHIMAZOLE 5 MG TAB PO (08:58)
[2018-11-26] MEDS: DOCUSATE SODIUM 100 MG CAP PO (08:58)
[2018-11-26] MEDS: INSULIN GLARGINE [LANTus] (100 UNITS/ML) SYG SC (09:01)
[2018-11-26] MEDS: ENOXAPARIN 40 MG/0.4 ML SYG SC (09:02)
[2018-11-26] MEDS: MEROPENEM 1 GM/50ML(PMX) 50 ML IVPB (09:03)
[2018-11-26 11:31] LABS: NIL 0.03 IU/mL; QUANTIFERON(R)-TB GOLD NEGATIVE (NEGATIVE); TB-NIL 0.25 IU/mL; TB2-NIL 0.21 IU/mL
[2018-11-26 16:12] LABS: WEST NILE VIRUS ANTIBODY (IGG) <1.30 index; WEST NILE VIRUS ANTIBODY (IGM) <0.90 index
== END 2018-11-26 15:15 | disposition home health service (06) | DRG 871 ==
LOC: TEL 22:47 → 2NE 11-25 01:33 → E/R 16:34 → TEL 11-18 02:43
DX: A41.9 Sepsis, unspecified organism (principal); J18.9 Pneumonia, unspecified organism; E11.9 Type 2 diabetes mellitus without complications; E05.00 Thyrotoxicosis with diffuse goiter without thyrotoxic crisis or storm; R63.4 Abnormal weight loss; Z68.25 Body mass index [BMI] 25.0-25.9, adult; J20.9 Acute bronchitis, unspecified; R76.11 Nonspecific reaction to tuberculin skin test without active tuberculosis; B96.81 Helicobacter pylori [H. pylori] as the cause of diseases classified elsewhere; B96.1 Klebsiella pneumoniae [K. pneumoniae] as the cause of diseases classified elsewhere; Z16.12 Extended spectrum beta lactamase (ESBL) resistance
CPT/HCPCS: 70450; 71045; 76536; 78806; 80048; 80053; 80202; 81003; 82150; 82607; 82962; 83036; 83605; 83690; 83735; 84145; 84436; 84439; 84443; 84479; 84480; 84481; 84484; 85025; 85610; 85651; 85730; 86140; 86308; 86376; 86480; 86635; 86641; 86664; 86703; 86788; 86789; 86800; 87040; 87070; 87086; 87116; 87207; 87275; 87276; 87279; 87280; 87400; 87496; 87529; 87536; 87556; 93005; 96374; 96375; 97110; 97162; 99291-25; J1800

== ENCOUNTER 2018-12-24 12:09 | Inpatient (IN) | payer OTHER ==
[2018-12-24] MEDS: SOD CHLORIDE 0.9% 1,000 ML IV (12:48)
[2018-12-24 12:52] LABS: ADD MAN DIFF? NO
[2018-12-24 12:56] LABS: ABNORMAL IP MESSAGE 1; BASOPHILS % 0.1 % (0.0-2.0); EOSINOPHILS % 0.3 % (0.0-7.0); HEMATOCRIT 30.8 % (42.0-52.0); HEMOGLOBIN 9.4 g/dl (14.0-18.0); LYMPHOCYTES # 1.4 10^3/ul (0.8-2.9); LYMPHOCYTES % 17.7 % (15.0-51.0); MEAN CORPUSCULAR HEMOGLOBIN 23.9 pg (29.0-33.0); MEAN CORPUSCULAR HGB CONC 30.5 g/dl (32.0-37.0); MEAN CORPUSCULAR VOLUME 78.4 fl (82.0-101.0); MEAN PLATELET VOLUME 9.6 fl (7.4-10.4); MONOCYTE # 1.7 10^3/ul (0.3-0.9); MONOCYTES % 22.2 % (0.0-11.0); NEUTROPHIL # 4.5 10^3/ul (1.6-7.5); NEUTROPHILS % 58.8 % (39.0-77.0); PLATELET COUNT 224 10^3/UL (140-415); POSITIVE DIFF @See below; RED BLOOD COUNT 3.93 10^6/ul (4.70-6.10); RED CELL DISTRIBUTION WIDTH 17.2 % (11.5-14.5)
[2018-12-24 12:56] LABS: WHITE BLOOD COUNT 7.7 10^3/ul (4.8-10.8)
[2018-12-24 13:15] LABS: ALANINE AMINOTRANSFERASE 29 IU/L (13-69); ALBUMIN 3.2 g/dl (3.3-4.9); ALBUMIN/GLOBULIN RATIO 0.76; ALKALINE PHOSPHATASE 162 IU/L (42-121); ANION GAP 9 (5-13); ASPARTATE AMINO TRANSFERASE 63 IU/L (15-46); BILIRUBIN,INDIRECT 0.5 mg/dl (0-1.1); BILIRUBIN,TOTAL 0.5 mg/dl (0.2-1.3); BLOOD UREA NITROGEN 16 mg/dl (7-20); CALCIUM 10.7 mg/dl (8.4-10.2); CARBON DIOXIDE 30 mmol/L (21-31); CHLORIDE 92 mmol/L (97-110); Estimated GFR > 60 mL/min (>60); GLUCOSE 171 mg/dl (70-220); POTASSIUM 5.4 mmol/L (3.5-5.1); SODIUM 131 mmol/L (135-144); TOTAL PROTEIN 7.4 g/dl (6.1-8.1)
[2018-12-24 13:25] LABS: TROPONIN-I < 0.012 ng/ml (0.000-0.120)
[2018-12-24 13:30] LABS: FREE T4 (FREE THYROXINE) 6.54 ng/dl (0.64-1.79)
[2018-12-24 13:54] LABS: THYROID STIMULATING HORMONE < 0.015 MIU/L (0.465-4.680)
[2018-12-24] MEDS ORDERED: NITROGLYCERIN (SL) 0.4 MG TAB SL (14:30)
[2018-12-24] MEDS: ASPIRIN 81 MG TAB PO (14:53)
[2018-12-24] MEDS: NITROGLYCERIN 2% 1 GM OINT PKT TD (14:56)
[2018-12-24] MEDS ORDERED: ACETAMINOPHEN 325 MG TAB PO (15:30)
[2018-12-24] MEDS ORDERED: ONDANSETRON 4 MG INJ IV (15:30)
[2018-12-24] MEDS ORDERED: GLUCOSE GEL 15 GRAM TUBE PO ×2 (17:00)
[2018-12-24] MEDS ORDERED: GLUCOSE GEL 15 GRAM TUBE BUCCAL (17:00)
[2018-12-24] MEDS ORDERED: DEXTROSE 50% 50 ML SYRINGE IV ×2 (17:00)
[2018-12-24] MEDS ORDERED: GLUCAGON 1 MG INJ IM (17:00)
[2018-12-24] MEDS ORDERED: NACL 0.9% 3 ML SYG IV (17:30)
[2018-12-24] MEDS: PROPYLTHIOURACIL 50 MG TAB PO ×2 (19:04→23:11)
[2018-12-24 20:02] LABS: CREATINE KINASE < 20 IU/L (23-200)
[2018-12-24 20:10] LABS: CK-MB < 0.22 ng/ml (0.0-2.4); TROPONIN-I < 0.012 ng/ml (0.000-0.120)
[2018-12-24] MEDS ORDERED: METHIMAZOLE 5 MG TAB PO (21:00)
[2018-12-24] MEDS: PROPRANOLOL 40 MG TAB PO (21:25)
[2018-12-24] MEDS: metFORMIN 500 MG TAB PO (21:26)
[2018-12-24] MEDS: METHIMAZOLE 5 MG TAB PO (21:27)
[2018-12-24] MEDS: HEPARIN 5,000 UNIT/1 ML VIAL SC (22:03)
[2018-12-24] MEDS: CHOLESTYRAMINE (LIGHT) 4 GM PACKET PO (23:12)
[2018-12-25 01:24] LABS: CREATINE KINASE < 20 IU/L (23-200)
[2018-12-25 01:30] LABS: CK-MB < 0.22 ng/ml (0.0-2.4); TROPONIN-I < 0.012 ng/ml (0.000-0.120)
[2018-12-25 06:28] LABS: ADD MAN DIFF? NO
[2018-12-25 06:31] LABS: HEMATOCRIT 27.3 % (42.0-52.0); HEMOGLOBIN 8.6 g/dl (14.0-18.0); MEAN CORPUSCULAR HEMOGLOBIN 24.4 pg (29.0-33.0); MEAN CORPUSCULAR HGB CONC 31.5 g/dl (32.0-37.0); MEAN CORPUSCULAR VOLUME 77.3 fl (82.0-101.0); PLATELET COUNT 202 10^3/UL (140-415); POSITIVE DIFF @See below; RED BLOOD COUNT 3.53 10^6/ul (4.70-6.10); RED CELL DISTRIBUTION WIDTH 17.4 % (11.5-14.5)
[2018-12-25 06:31] LABS: WHITE BLOOD COUNT 5.5 10^3/ul (4.8-10.8)
[2018-12-25 07:03] LABS: ALANINE AMINOTRANSFERASE 29 IU/L (13-69); ALBUMIN 2.8 g/dl (3.3-4.9); ALBUMIN/GLOBULIN RATIO 0.71; ALKALINE PHOSPHATASE 138 IU/L (42-121); ANION GAP 6 (5-13); ASPARTATE AMINO TRANSFERASE 55 IU/L (15-46); BILIRUBIN,INDIRECT 0.4 mg/dl (0-1.1); BILIRUBIN,TOTAL 0.4 mg/dl (0.2-1.3); BLOOD UREA NITROGEN 10 mg/dl (7-20); CARBON DIOXIDE 31 mmol/L (21-31); CHLORIDE 94 mmol/L (97-110); CREATININE 0.59 mg/dl (0.61-1.24); Estimated GFR > 60 mL/min (>60); GLUCOSE 177 mg/dl (70-220); POTASSIUM 4.1 mmol/L (3.5-5.1); SODIUM 131 mmol/L (135-144); TOTAL PROTEIN 6.7 g/dl (6.1-8.1)
[2018-12-25 07:04] LABS: FREE T3 5.66 pg/ml (2.77-5.27)
[2018-12-25 07:10] LABS: HEMOGLOBIN A1C 6.3 % (0-5.9)
[2018-12-25 07:12] LABS: FREE T4 (FREE THYROXINE) 5.62 ng/dl (0.64-1.79)
[2018-12-25 07:20] LABS: ANISOCYTOSIS 1+ (0-0); LYMPHOCYTES #M 0.8 10^3/ul (0.8-2.9); LYMPHOCYTES % (M) 16 % (15-51); MICROCYTOSIS 1+ (0-0); MONOCYTE #M 1.1 10^3/ul (0.3-0.9); MONOCYTES % (M) 21 % (0-11); PLATELET ESTIMATE NORMAL; POLYCHROMASIA 2+ (0-0); REACTIVE LYMPHOCYTES #M 0.8 10^3/ul (0.0-0.0); REACTIVE LYMPHOCYTES% (M) 15 % (0-0); SEGMENTED NEUTROPHILS (M) % 48 % (39-77); SMUDGE%M 4 % (0-0); SPHEROCYTES 1+ (0-0)
[2018-12-25] MEDS: PANTOPRAZOLE (EC) 40 MG TAB PO (07:24)
[2018-12-25] MEDS: CHOLESTYRAMINE (LIGHT) 4 GM PACKET PO ×2 (08:41→15:00)
[2018-12-25] MEDS: metFORMIN 500 MG TAB PO ×2 (08:41→21:42)
[2018-12-25] MEDS: METHIMAZOLE 5 MG TAB PO ×2 (08:42→21:42)
[2018-12-25] MEDS: HEPARIN 5,000 UNIT/1 ML VIAL SC ×2 (08:53→21:58)
[2018-12-25] MEDS: PROPRANOLOL 40 MG TAB PO ×3 (09:00→21:43)
[2018-12-25 10:31] LABS: IRON 23 ug/dl (35-150)
[2018-12-25 10:41] LABS: % IRON SATURATION 13 % SAT (22-52); TOTAL IRON BINDING CAPACITY 184 ug/dl (241-421)
[2018-12-25] MEDS: INSULIN ASPART [NOVOLOG] 3 ML PEN SC ×3 (12:37→21:59)
[2018-12-25] MEDS: INSULIN GLARGINE [LANTus] (100 UNITS/ML) SYG SC (21:59)
[2018-12-26] MEDS: PANTOPRAZOLE (EC) 40 MG TAB PO (06:12)
[2018-12-26 07:36] LABS: FREE T3 7.32 pg/ml (2.77-5.27)
[2018-12-26] MEDS: INSULIN ASPART [NOVOLOG] 3 ML PEN SC ×4 (07:50→20:27)
[2018-12-26 08:19] LABS: FREE T4 (FREE THYROXINE) 5.64 ng/dl (0.64-1.79)
[2018-12-26] MEDS: CHOLESTYRAMINE (LIGHT) 4 GM PACKET PO (08:35)
[2018-12-26] MEDS: METHIMAZOLE 5 MG TAB PO ×2 (08:36→20:27)
[2018-12-26] MEDS: metFORMIN 500 MG TAB PO ×2 (08:37→20:26)
[2018-12-26] MEDS: PROPRANOLOL 40 MG TAB PO ×3 (08:38→20:26)
[2018-12-26] MEDS: HEPARIN 5,000 UNIT/1 ML VIAL SC ×2 (08:43→20:42)
[2018-12-26 13:17] LABS: OSMOLALITY,URINE 252 mOsm/kg (250-1200)
[2018-12-26 13:23] LABS: SODIUM,URINE RANDOM 50 mmol/L (30-90)
[2018-12-26] MEDS: INSULIN GLARGINE [LANTus] (100 UNITS/ML) SYG SC (20:42)
[2018-12-27] MEDS: ACETAMINOPHEN 325 MG TAB PO ×2 (00:25→20:34)
[2018-12-27] MEDS: PANTOPRAZOLE (EC) 40 MG TAB PO (06:25)
[2018-12-27 06:46] LABS: HEMATOCRIT 27.7 % (42.0-52.0); HEMOGLOBIN 8.7 g/dl (14.0-18.0); MEAN CORPUSCULAR HEMOGLOBIN 24.5 pg (29.0-33.0); MEAN CORPUSCULAR HGB CONC 31.4 g/dl (32.0-37.0); PLATELET COUNT 200 10^3/UL (140-415); POSITIVE DIFF @See below; RED BLOOD COUNT 3.55 10^6/ul (4.70-6.10); RED CELL DISTRIBUTION WIDTH 17.2 % (11.5-14.5)
[2018-12-27 06:46] LABS: WHITE BLOOD COUNT 6.1 10^3/ul (4.8-10.8)
[2018-12-27 07:07] LABS: ADD MAN DIFF? YES
[2018-12-27 07:24] LABS: ANION GAP 7 (5-13); BLOOD UREA NITROGEN 9 mg/dl (7-20); CALCIUM 9.9 mg/dl (8.4-10.2); CARBON DIOXIDE 30 mmol/L (21-31); CHLORIDE 96 mmol/L (97-110); CREATININE 0.59 mg/dl (0.61-1.24); Estimated GFR > 60 mL/min (>60); GLUCOSE 77 mg/dl (70-220); MAGNESIUM 1.2 mg/dl (1.7-2.5); PHOSPHORUS 3.9 mg/dl (2.5-4.9); POTASSIUM 4.4 mmol/L (3.5-5.1); SODIUM 133 mmol/L (135-144)
[2018-12-27] MEDS: INSULIN ASPART [NOVOLOG] 3 ML PEN SC ×4 (07:55→20:29)
[2018-12-27] MEDS: METHIMAZOLE 5 MG TAB PO ×2 (08:27→20:29)
[2018-12-27] MEDS: CHOLESTYRAMINE (LIGHT) 4 GM PACKET PO (08:27)
[2018-12-27] MEDS: metFORMIN 500 MG TAB PO ×2 (08:27→20:28)
[2018-12-27] MEDS: PROPRANOLOL 40 MG TAB PO ×3 (08:27→17:15)
[2018-12-27] MEDS: HEPARIN 5,000 UNIT/1 ML VIAL SC ×2 (08:32→20:45)
[2018-12-27 09:30] LABS: ANISOCYTOSIS 2+ (0-0); BAND NEUTROPHILS % (M) 1 % (0-4); HYPOCHROMASIA 2+ (0-0); LYMPHOCYTES #M 1.4 10^3/ul (0.8-2.9); LYMPHOCYTES % (M) 24 % (15-51); MICROCYTOSIS 1+ (0-0); MONOCYTE #M 1.2 10^3/ul (0.3-0.9); MONOCYTES % (M) 21 % (0-11); PLATELET ESTIMATE NORMAL; POIKILOCYTOSIS 1+ (0-0); POLYCHROMASIA 3+ (0-0); ROULEAU 1+ (0-0); SEG NEUT #M 3.3 10^3/ul (1.6-7.5); SEGMENTED NEUTROPHILS (M) % 54 % (39-77); SMUDGE%M 13 % (0-0); TARGET CELLS 1+ (0-0)
[2018-12-27] MEDS: MAGNESIUM SULFATE 3 GM in DEXTROSE 5% 100 ML IVPB (11:03)
[2018-12-27 11:21] LABS: ADD UMIC NO; UR ASCORBIC ACID NEGATIVE (NEGATIVE); UR BILIRUBIN (Dip) NEGATIVE (NEGATIVE); UR BLOOD (Dip) NEGATIVE (NEGATIVE); UR CLARITY CLEAR (CLEAR); UR COLOR YELLOW (YELLOW); UR GLUCOSE (Dip) NEGATIVE (NEGATIVE); UR KETONES (Dip) NEGATIVE (NEGATIVE); UR LEUKOCYTE ESTERASE (Dip) NEGATIVE Leu/ul (NEGATIVE); UR NITRITE (Dip) NEGATIVE (NEGATIVE); UR SPECIFIC GRAVITY (Dip) 1.011 (1.003-1.030); UR TOTAL PROTEIN (Dip) NEGATIVE (NEGATIVE); UR UROBILINOGEN (Dip) NEGATIVE (NEGATIVE)
[2018-12-27] MEDS: INSULIN GLARGINE [LANTus] (100 UNITS/ML) SYG SC (20:32)
[2018-12-28] MEDS: PROPRANOLOL 40 MG TAB PO ×4 (00:47→17:32)
[2018-12-28] MEDS: ACETAMINOPHEN 325 MG TAB PO (06:41)
[2018-12-28] MEDS: PANTOPRAZOLE (EC) 40 MG TAB PO (06:42)
[2018-12-28] MEDS: INSULIN ASPART [NOVOLOG] 3 ML PEN SC ×4 (07:55→21:00)
[2018-12-28] MEDS: metFORMIN 500 MG TAB PO ×2 (08:09→21:15)
[2018-12-28] MEDS: METHIMAZOLE 5 MG TAB PO ×2 (08:10→21:14)
[2018-12-28] MEDS: CHOLESTYRAMINE (LIGHT) 4 GM PACKET PO ×2 (08:10→21:23)
[2018-12-28] MEDS: HEPARIN 5,000 UNIT/1 ML VIAL SC ×2 (08:16→21:18)
[2018-12-28] MEDS: FERROUS FUMARATE (SR) TAB PO (12:24)
[2018-12-28] MEDS: INSULIN GLARGINE [LANTus] (100 UNITS/ML) SYG SC (21:18)
[2018-12-29] MEDS: PROPRANOLOL 40 MG TAB PO ×5 (05:43→23:48)
[2018-12-29] MEDS: INSULIN ASPART [NOVOLOG] 3 ML PEN SC ×4 (07:55→20:55)
[2018-12-29] MEDS: metFORMIN 500 MG TAB PO ×2 (09:26→20:56)
[2018-12-29] MEDS: METHIMAZOLE 5 MG TAB PO (09:26)
[2018-12-29] MEDS: PANTOPRAZOLE (EC) 40 MG TAB PO (09:26)
[2018-12-29] MEDS: CHOLESTYRAMINE (LIGHT) 4 GM PACKET PO ×2 (09:28→20:56)
[2018-12-29] MEDS: HEPARIN 5,000 UNIT/1 ML VIAL SC ×2 (09:39→21:54)
[2018-12-29] MEDS: FERROUS FUMARATE (SR) TAB PO (12:22)
[2018-12-29] MEDS: ACETAMINOPHEN 325 MG TAB PO (17:57)
[2018-12-29] MEDS: INSULIN GLARGINE [LANTus] (100 UNITS/ML) SYG SC (21:54)
[2018-12-29] MEDS: METHIMAZOLE 10 MG TAB PO (21:55)
[2018-12-30 00:02] LABS: HEMATOCRIT 27.1 % (38.5-50.0); HEMOGLOBIN 8.9 g/dL (13.2-17.1); MCH 24.8 pg (27.0-33.0); MCV 75.5 fL (80.0-100.0); RDW 16.5 % (11.0-15.0); RED BLOOD CELL COUNT 3.59 Million/uL (4.20-5.80)
[2018-12-30 03:47] LABS: PROTEIN, TOTAL 6.1 g/dL (6.1-8.1)
[2018-12-30] MEDS: PROPRANOLOL 40 MG TAB PO ×3 (05:51→18:00)
[2018-12-30 06:49] LABS: ADD MAN DIFF? NO
[2018-12-30 06:51] LABS: WHITE BLOOD COUNT 6.2 10^3/ul (4.8-10.8)
[2018-12-30 06:51] LABS: BASOPHILS % 0.3 % (0.0-2.0); EOSINOPHILS % 0.5 % (0.0-7.0); HEMATOCRIT 27.3 % (42.0-52.0); HEMOGLOBIN 8.4 g/dl (14.0-18.0); LYMPHOCYTES # 1.6 10^3/ul (0.8-2.9); LYMPHOCYTES % 25.6 % (15.0-51.0); MEAN CORPUSCULAR HEMOGLOBIN 24.1 pg (29.0-33.0); MEAN CORPUSCULAR HGB CONC 30.8 g/dl (32.0-37.0); MEAN CORPUSCULAR VOLUME 78.2 fl (82.0-101.0); MEAN PLATELET VOLUME 9.2 fl (7.4-10.4); MONOCYTE # 1.3 10^3/ul (0.3-0.9); MONOCYTES % 20.3 % (0.0-11.0); NEUTROPHIL # 3.3 10^3/ul (1.6-7.5); NEUTROPHILS % 52.7 % (39.0-77.0); PLATELET COUNT 203 10^3/UL (140-415); RED BLOOD COUNT 3.49 10^6/ul (4.70-6.10); RED CELL DISTRIBUTION WIDTH 17.2 % (11.5-14.5)
[2018-12-30 07:35] LABS: FREE T4 (FREE THYROXINE) 5.31 ng/dl (0.64-1.79)
[2018-12-30 07:37] LABS: ANION GAP 8 (5-13); BLOOD UREA NITROGEN 9 mg/dl (7-20); CALCIUM 9.8 mg/dl (8.4-10.2); CARBON DIOXIDE 27 mmol/L (21-31); CHLORIDE 96 mmol/L (97-110); CREATININE 0.59 mg/dl (0.61-1.24); Estimated GFR > 60 mL/min (>60); GLUCOSE 70 mg/dl (70-220); POTASSIUM 4.7 mmol/L (3.5-5.1); SODIUM 131 mmol/L (135-144)
[2018-12-30] MEDS: INSULIN ASPART [NOVOLOG] 3 ML PEN SC ×4 (07:55→20:33)
[2018-12-30 08:30] LABS: ERYTHROCYTE SEDIMENTATION RATE 80 mm/Hr (0-20)
[2018-12-30] MEDS: CHOLESTYRAMINE (LIGHT) 4 GM PACKET PO ×2 (09:24→20:30)
[2018-12-30] MEDS: metFORMIN 500 MG TAB PO ×2 (09:24→20:30)
[2018-12-30] MEDS: PANTOPRAZOLE (EC) 40 MG TAB PO (09:24)
[2018-12-30] MEDS: HEPARIN 5,000 UNIT/1 ML VIAL SC ×2 (09:32→21:05)
[2018-12-30] MEDS: ONDANSETRON 4 MG TAB PO (09:59)
[2018-12-30] MEDS: HYDROCODONE/APAP (10/325) TAB PO (09:59)
[2018-12-30] MEDS: ACETAMINOPHEN 325 MG TAB PO (11:55)
[2018-12-30] MEDS: METHIMAZOLE 10 MG TAB PO ×2 (11:55→20:30)
[2018-12-30] MEDS: FERROUS FUMARATE (SR) TAB PO (12:02)
[2018-12-30 12:21] LABS: HAPTOGLOBIN 413 mg/dL (43-212)
[2018-12-30 17:06] LABS: ALPHA-1-GLOBULINS 0.5 g/dL (0.2-0.3); BETA 2 GLOBULINS 0.7 g/dL (0.2-0.5); BETA GLOBULINS 0.4 g/dL (0.4-0.6); GAMMA GLOBULINS 1.6 g/dL (0.8-1.7)
[2018-12-30] MEDS: INSULIN GLARGINE [LANTus] (100 UNITS/ML) SYG SC (21:06)
[2018-12-31] MEDS: PANTOPRAZOLE (EC) 40 MG TAB PO (07:20)
[2018-12-31] MEDS: PROPRANOLOL 40 MG TAB PO ×4 (07:29→17:52)
[2018-12-31] MEDS: INSULIN ASPART [NOVOLOG] 3 ML PEN SC ×4 (07:50→21:00)
[2018-12-31] MEDS: metFORMIN 500 MG TAB PO ×2 (09:06→21:01)
[2018-12-31] MEDS: POLYETHYLENE GLYCOL 17 GM PACKET PO (09:09)
[2018-12-31] MEDS: HEPARIN 5,000 UNIT/1 ML VIAL SC ×2 (09:24→21:06)
[2018-12-31] MEDS: METHIMAZOLE 10 MG TAB PO ×2 (09:48→21:02)
[2018-12-31] MEDS: CHOLESTYRAMINE (LIGHT) 4 GM PACKET PO ×2 (10:48→21:03)
[2018-12-31] MEDS: FERROUS FUMARATE (SR) TAB PO (13:05)
[2018-12-31] MEDS: INSULIN GLARGINE [LANTus] (100 UNITS/ML) SYG SC (21:05)
[2018-12-31] MEDS: ACETAMINOPHEN 325 MG TAB PO (21:48)
[2019-01-01] MEDS: DOCUSATE SODIUM 100 MG CAP PO ×2 (00:45→09:00)
[2019-01-01 04:46] LABS: HEMATOCRIT 25.4 % (38.5-50.0); HEMOGLOBIN 8.4 g/dL (13.2-17.1); MCH 24.3 pg (27.0-33.0); MCV 73.6 fL (80.0-100.0); RDW 16.6 % (11.0-15.0); RED BLOOD CELL COUNT 3.45 Million/uL (4.20-5.80)
[2019-01-01] MEDS: PROPRANOLOL 40 MG TAB PO ×3 (06:32→13:04)
[2019-01-01] MEDS: INSULIN ASPART [NOVOLOG] 3 ML PEN SC ×2 (07:50→12:40)
[2019-01-01] MEDS: ACETAMINOPHEN 325 MG TAB PO (08:13)
[2019-01-01] MEDS: CHOLESTYRAMINE (LIGHT) 4 GM PACKET PO (08:13)
[2019-01-01] MEDS: SENNA TAB PO (08:14)
[2019-01-01] MEDS: METHIMAZOLE 10 MG TAB PO (08:14)
[2019-01-01] MEDS: PANTOPRAZOLE (EC) 40 MG TAB PO (08:14)
[2019-01-01] MEDS: metFORMIN 500 MG TAB PO (08:14)
[2019-01-01] MEDS: HEPARIN 5,000 UNIT/1 ML VIAL SC (08:37)
[2019-01-01 10:12] LABS: HEMOGLOBIN A 96.7 % (>96.0); HEMOGLOBIN A2 (QUANT) 3.3 % (1.8-3.5); HEMOGLOBIN F <1.0 % (<2.0)
[2019-01-01] MEDS: FERROUS FUMARATE (SR) TAB PO (13:04)
[2019-01-01 13:07] LABS: FOLATE 4.5 ng/ml (2.8-20.0)
[2019-01-01] MEDS: BISACODYL 10 MG SUPP PR (13:26)
[2019-01-01] MEDS ORDERED: DOCUSATE SODIUM 100 MG CAP PO (23:50)
[2019-01-05 08:37] LABS: HEMOGLOBIN A 96.5 % (>96.0); HEMOGLOBIN A2 (QUANT) 3.5 % (1.8-3.5); HEMOGLOBIN F <1.0 % (<2.0)
== END 2019-01-01 16:50 | disposition home or self-care (01) | DRG 644 ==
LOC: MS1 12-30 23:52 → E/R 12:09 → TEL 15:29
DX: E05.00 Thyrotoxicosis with diffuse goiter without thyrotoxic crisis or storm (principal); E87.1 Hypo-osmolality and hyponatremia; E11.8 Type 2 diabetes mellitus with unspecified complications; E03.9 Hypothyroidism, unspecified; E78.5 Hyperlipidemia, unspecified; I10 Essential (primary) hypertension; D63.8 Anemia in other chronic diseases classified elsewhere; D50.9 Iron deficiency anemia, unspecified
CPT/HCPCS: 36415; 71045; 80048; 80053; 81003; 82550; 82553; 82607; 82728; 82746; 82962; 83010; 83020; 83036; 83540; 83735; 83935; 84100; 84155; 84165; 84300; 84439; 84443; 84481; 84484; 85025; 85651; 86880; 86885; 87040; 87081; 93005; 99285-25

== ENCOUNTER 2019-01-14 11:41 | Inpatient (IN) | payer OTHER ==
[2019-01-14] MEDS: SODIUM CHLORIDE 0.9% 1L BAG IV* (12:37)
[2019-01-14] MEDS: CEFTRIAXONE 1 GM/50 ML (PMX) 50 ML IVPB (12:37)
[2019-01-14 12:48] LABS: ADD MAN DIFF? NO
[2019-01-14 12:51] LABS: BASOPHILS % 0.3 % (0.0-2.0); EOSINOPHILS % 0.6 % (0.0-7.0); HEMATOCRIT 32.5 % (42.0-52.0); HEMOGLOBIN 10.1 g/dl (14.0-18.0); LYMPHOCYTES # 1.1 10^3/ul (0.8-2.9); LYMPHOCYTES % 15.3 % (15.0-51.0); MEAN CORPUSCULAR HEMOGLOBIN 23.9 pg (29.0-33.0); MEAN CORPUSCULAR HGB CONC 31.1 g/dl (32.0-37.0); MEAN CORPUSCULAR VOLUME 76.8 fl (82.0-101.0); MONOCYTE # 1.2 10^3/ul (0.3-0.9); NEUTROPHIL # 4.8 10^3/ul (1.6-7.5); NEUTROPHILS % 66.4 % (39.0-77.0); PLATELET COUNT 168 10^3/UL (140-415); RED BLOOD COUNT 4.23 10^6/ul (4.70-6.10); RED CELL DISTRIBUTION WIDTH 18.8 % (11.5-14.5)
[2019-01-14 12:51] LABS: WHITE BLOOD COUNT 7.3 10^3/ul (4.8-10.8)
[2019-01-14 13:11] LABS: ALANINE AMINOTRANSFERASE 24 IU/L (13-69); ALBUMIN 2.4 g/dl (3.3-4.9); ALKALINE PHOSPHATASE 174 IU/L (42-121); ANION GAP 9 (5-13); ASPARTATE AMINO TRANSFERASE 95 IU/L (15-46); BILIRUBIN,INDIRECT 0.3 mg/dl (0-1.1); BILIRUBIN,TOTAL 0.3 mg/dl (0.2-1.3); BLOOD UREA NITROGEN 23 mg/dl (7-20); CALCIUM 9.3 mg/dl (8.4-10.2); CARBON DIOXIDE 27 mmol/L (21-31); CHLORIDE 92 mmol/L (97-110); CREATININE 0.88 mg/dl (0.61-1.24); Estimated GFR > 60 mL/min (>60); GLUCOSE 185 mg/dl (70-220); POTASSIUM 5.2 mmol/L (3.5-5.1); SODIUM 128 mmol/L (135-144); TOTAL PROTEIN 6.4 g/dl (6.1-8.1)
[2019-01-14 13:12] LABS: INR 1.04; PROTIME 13.7 Sec (11.9-14.9); PT RATIO 1.1
[2019-01-14 13:13] LABS: PARTIAL THROMBOPLASTIN TIME 31.7 Sec (23.0-35.0)
[2019-01-14 13:23] LABS: TROPONIN-I < 0.012 ng/ml (0.000-0.120)
[2019-01-14 13:45] LABS: LACTIC ACID 4.8 mmol/L (0.5-2.0)
[2019-01-14 13:53] LABS: T3 UPTAKE > 65.0 % (23.5-40.5)
[2019-01-14] MEDS: SOD CHLORIDE 0.9% 1,000 ML IV ×2 (14:18→15:48)
[2019-01-14] MEDS: HYDROCORTISONE 100 MG INJ IV ×2 (14:18→22:41)
[2019-01-14] MEDS ORDERED: NACL 0.9% 3 ML SYG IV (15:00)
[2019-01-14 15:06] LABS: LACTIC ACID 2.9 mmol/L (0.5-2.0)
[2019-01-14] MEDS ORDERED: GLUCAGON 1 MG INJ IM (16:00)
[2019-01-14] MEDS ORDERED: DEXTROSE 50% 50 ML SYRINGE IV (16:00)
[2019-01-14] MEDS ORDERED: GLUCOSE GEL 15 GRAM TUBE PO ×2 (16:00)
[2019-01-14] MEDS: NORepinephrine 8MG/250 ML (PMX 250 ML IV (17:22)
[2019-01-14] MEDS: INSULIN ASPART [NOVOLOG] 3 ML PEN SC ×2 (17:51→22:38)
[2019-01-14] MEDS: PIPER-TAZO 3.375 GM IV (PMX) 100 ML IVPB (18:43)
[2019-01-14 20:03] LABS: FREE T3 3.43 pg/ml (2.77-5.27)
[2019-01-14 20:05] LABS: FREE T4 (FREE THYROXINE) 4.73 ng/dl (0.64-1.79)
[2019-01-14] MEDS: BISMUTH SUBSALICYLATE 120 ML BTL PO (21:00)
[2019-01-14] MEDS: METHIMAZOLE 5 MG TAB PO (21:00)
[2019-01-14] MEDS: PROPYLTHIOURACIL 50 MG TAB PO (21:21)
[2019-01-14] MEDS: AMOXICILLIN 500 MG CAP PO (21:21)
[2019-01-14] MEDS: ATORVASTATIN 10 MG TAB PO (21:21)
[2019-01-14] MEDS: CLARITHROMYCIN 500 MG TAB PO (21:21)
[2019-01-14] MEDS: SOD FERRIC GLUC COMPLX 125 MG in SOD CHLORIDE 0.9% 100 ML IVPB (21:37)
[2019-01-15] MEDS: PIPER-TAZO 3.375 GM IV (PMX) 100 ML IVPB ×5 (00:16→23:27)
[2019-01-15] MEDS: SOD CHLORIDE 0.9% 1,000 ML IV ×2 (00:22→13:44)
[2019-01-15] MEDS: ACCU-CHEK XX (02:00)
[2019-01-15] MEDS: INSULIN ASPART [NOVOLOG] 3 ML PEN SC ×9 (03:01→21:37)
[2019-01-15 05:55] LABS: ADD MAN DIFF? NO
[2019-01-15 05:57] LABS: WHITE BLOOD COUNT 6.7 10^3/ul (4.8-10.8)
[2019-01-15 05:57] LABS: BASOPHILS % 0.3 % (0.0-2.0); HEMATOCRIT 35.3 % (42.0-52.0); HEMOGLOBIN 10.8 g/dl (14.0-18.0); LYMPHOCYTES # 1.1 10^3/ul (0.8-2.9); LYMPHOCYTES % 16.1 % (15.0-51.0); MEAN CORPUSCULAR HEMOGLOBIN 24.3 pg (29.0-33.0); MEAN CORPUSCULAR HGB CONC 30.6 g/dl (32.0-37.0); MEAN CORPUSCULAR VOLUME 79.5 fl (82.0-101.0); MEAN PLATELET VOLUME 8.9 fl (7.4-10.4); MONOCYTE # 0.6 10^3/ul (0.3-0.9); MONOCYTES % 9.3 % (0.0-11.0); NEUTROPHIL # 4.9 10^3/ul (1.6-7.5); NEUTROPHILS % 72.7 % (39.0-77.0); NUCLEATED RED BLOOD CELLS% 0.3 /100WBC (0.0-0.0); PLATELET COUNT 207 10^3/UL (140-415); RED BLOOD COUNT 4.44 10^6/ul (4.70-6.10); RED CELL DISTRIBUTION WIDTH 19.4 % (11.5-14.5)
[2019-01-15] MEDS ORDERED: PANTOPRAZOLE (EC) 40 MG TAB PO (06:00)
[2019-01-15] MEDS: traZODone 50 MG TAB PO (06:03)
[2019-01-15] MEDS: PANTOPRAZOLE (EC) 40 MG TAB PO ×2 (06:03→17:10)
[2019-01-15] MEDS: HYDROCORTISONE 100 MG INJ IV ×3 (06:03→21:47)
[2019-01-15 06:36] LABS: ANION GAP 13 (5-13); BLOOD UREA NITROGEN 26 mg/dl (7-20); CARBON DIOXIDE 21 mmol/L (21-31); CHLORIDE 98 mmol/L (97-110); CREATININE 1.08 mg/dl (0.61-1.24); Estimated GFR > 60 mL/min (>60); GLUCOSE 380 mg/dl (70-220); MAGNESIUM 1.5 mg/dl (1.7-2.5); PHOSPHORUS 5.5 mg/dl (2.5-4.9); POTASSIUM 5.3 mmol/L (3.5-5.1); SODIUM 132 mmol/L (135-144)
[2019-01-15 06:41] LABS: HEMOGLOBIN A1C 5.6 % (0-5.9)
[2019-01-15 06:55] LABS: THYROID STIMULATING HORMONE < 0.015 MIU/L (0.465-4.680)
[2019-01-15] MEDS: BISMUTH SUBSALICYLATE 120 ML BTL PO ×4 (07:35→21:00)
[2019-01-15] MEDS: AMOXICILLIN 500 MG CAP PO ×2 (08:58→21:47)
[2019-01-15] MEDS: PROPYLTHIOURACIL 50 MG TAB PO ×4 (08:58→21:00)
[2019-01-15] MEDS: CLARITHROMYCIN 500 MG TAB PO ×2 (08:58→21:47)
[2019-01-15] MEDS: NORepinephrine 8MG/250 ML (PMX 250 ML IV (10:47)
[2019-01-15] MEDS: NA POLYST SULFON 15 GM/60 ML BTL PO (10:54)
[2019-01-15] MEDS: MAGNESIUM SULFATE 2 GM/50 ML 50 ML IVPB (10:54)
[2019-01-15] MEDS: INSULIN GLARGINE [LANTus] (100 UNITS/ML) SYG SC (11:00)
[2019-01-15] MEDS ORDERED: HYDROCORTISONE 100 MG INJ IV (15:30)
[2019-01-15] MEDS: NPH, HUMAN INSULIN ISOPHANE 3ML VIAL SC ×2 (16:31→21:38)
[2019-01-15] MEDS: ATORVASTATIN 10 MG TAB PO (21:28)
[2019-01-16] MEDS: INSULIN ASPART [NOVOLOG] 3 ML PEN SC ×5 (02:34→16:57)
[2019-01-16] MEDS: SOD CHLORIDE 0.9% 250 ML IV (02:40)
[2019-01-16] MEDS: ACCU-CHEK XX ×16 (02:42→22:54)
[2019-01-16] MEDS: SOD CHLORIDE 0.9% 1,000 ML IV ×3 (05:40→22:57)
[2019-01-16] MEDS: PIPER-TAZO 3.375 GM IV (PMX) 100 ML IVPB ×4 (05:46→23:50)
[2019-01-16] MEDS: PANTOPRAZOLE (EC) 40 MG TAB PO ×2 (05:48→18:16)
[2019-01-16] MEDS: NPH, HUMAN INSULIN ISOPHANE 3ML VIAL SC (05:52)
[2019-01-16] MEDS: HYDROCORTISONE 100 MG INJ IV ×3 (05:56→22:53)
[2019-01-16 07:57] LABS: ADD MAN DIFF? NO
[2019-01-16 08:03] LABS: BASOPHILS % 0.1 % (0.0-2.0); HEMATOCRIT 27.7 % (42.0-52.0); HEMOGLOBIN 8.6 g/dl (14.0-18.0); LYMPHOCYTES # 0.7 10^3/ul (0.8-2.9); LYMPHOCYTES % 9.9 % (15.0-51.0); MEAN CORPUSCULAR VOLUME 77.2 fl (82.0-101.0); MEAN PLATELET VOLUME 8.5 fl (7.4-10.4); MONOCYTE # 0.8 10^3/ul (0.3-0.9); MONOCYTES % 10.7 % (0.0-11.0); NEUTROPHIL # 5.5 10^3/ul (1.6-7.5); NEUTROPHILS % 77.6 % (39.0-77.0); PLATELET COUNT 186 10^3/UL (140-415); RED BLOOD COUNT 3.59 10^6/ul (4.70-6.10); RED CELL DISTRIBUTION WIDTH 19.2 % (11.5-14.5)
[2019-01-16 08:03] LABS: WHITE BLOOD COUNT 7.1 10^3/ul (4.8-10.8)
[2019-01-16 08:18] LABS: PHOSPHORUS 3.6 mg/dl (2.5-4.9)
[2019-01-16 08:18] LABS: MAGNESIUM 1.8 mg/dl (1.7-2.5)
[2019-01-16 08:19] LABS: ANION GAP 9 (5-13); BLOOD UREA NITROGEN 32 mg/dl (7-20); CALCIUM 8.6 mg/dl (8.4-10.2); CARBON DIOXIDE 22 mmol/L (21-31); CHLORIDE 102 mmol/L (97-110); CREATININE 1.45 mg/dl (0.61-1.24); Estimated GFR 50 mL/min (>60); SODIUM 133 mmol/L (135-144)
[2019-01-16 08:21] LABS: GLUCOSE 466 mg/dl (70-220)
[2019-01-16] MEDS: BISMUTH SUBSALICYLATE 120 ML BTL PO ×4 (08:29→21:00)
[2019-01-16] MEDS: CLARITHROMYCIN 500 MG TAB PO ×2 (08:29→20:45)
[2019-01-16] MEDS: AMOXICILLIN 500 MG CAP PO ×2 (08:29→20:46)
[2019-01-16] MEDS: PROPYLTHIOURACIL 50 MG TAB PO (08:54)
[2019-01-16] MEDS ORDERED: DEXTROSE 50% 50 ML SYRINGE IV ×2 (09:00)
[2019-01-16] MEDS: INSULIN GLARGINE [LANTus] (100 UNITS/ML) SYG SC (09:45)
[2019-01-16] MEDS: SENNA TAB PO ×2 (10:10→20:45)
[2019-01-16] MEDS: INSULIN HUMAN REGULAR 100 UNIT in SOD CHLORIDE 0.9% 99 ML IV ×2 (10:58→15:43)
[2019-01-16] MEDS: ONDANSETRON 4 MG INJ IV (12:59)
[2019-01-16] MEDS: METHIMAZOLE 5 MG TAB PO ×2 (13:47→20:46)
[2019-01-16] MEDS ORDERED: NPH, HUMAN INSULIN ISOPHANE 3ML VIAL SC (14:00)
[2019-01-16 14:52] LABS: ANION GAP 9 (5-13); BLOOD UREA NITROGEN 34 mg/dl (7-20); CARBON DIOXIDE 23 mmol/L (21-31); CHLORIDE 104 mmol/L (97-110); CREATININE 1.46 mg/dl (0.61-1.24); Estimated GFR 50 mL/min (>60); GLUCOSE 242 mg/dl (70-220); POTASSIUM 3.3 mmol/L (3.5-5.1); SODIUM 136 mmol/L (135-144)
[2019-01-16 14:54] LABS: MAGNESIUM 1.8 mg/dl (1.7-2.5)
[2019-01-16 15:02] LABS: TROPONIN-I < 0.012 ng/ml (0.000-0.120)
[2019-01-16] MEDS: MAGNESIUM SULFATE 2 GM/50 ML 50 ML IVPB (15:43)
[2019-01-16] MEDS: POTASSIUM CHLORIDE 20 MEQ POWDER FOR ORAL SOLN PO (15:44)
[2019-01-16] MEDS: ATORVASTATIN 10 MG TAB PO (20:46)
[2019-01-16] MEDS ORDERED: SENNA TAB PO (21:00)
[2019-01-17] MEDS: ACCU-CHEK XX ×18 (01:00→17:00)
[2019-01-17 05:14] LABS: ADD MAN DIFF? NO
[2019-01-17 05:20] LABS: WHITE BLOOD COUNT 7.1 10^3/ul (4.8-10.8)
[2019-01-17 05:21] LABS: BASOPHILS % 0.1 % (0.0-2.0); HEMATOCRIT 26.2 % (42.0-52.0); HEMOGLOBIN 8.2 g/dl (14.0-18.0); LYMPHOCYTES # 0.7 10^3/ul (0.8-2.9); LYMPHOCYTES % 10.1 % (15.0-51.0); MEAN CORPUSCULAR HEMOGLOBIN 23.9 pg (29.0-33.0); MEAN CORPUSCULAR HGB CONC 31.3 g/dl (32.0-37.0); MEAN CORPUSCULAR VOLUME 76.4 fl (82.0-101.0); MEAN PLATELET VOLUME 8.4 fl (7.4-10.4); MONOCYTE # 0.6 10^3/ul (0.3-0.9); MONOCYTES % 8.7 % (0.0-11.0); NEUTROPHIL # 5.6 10^3/ul (1.6-7.5); NEUTROPHILS % 79.5 % (39.0-77.0); PLATELET COUNT 157 10^3/UL (140-415); RED BLOOD COUNT 3.43 10^6/ul (4.70-6.10); RED CELL DISTRIBUTION WIDTH 19.7 % (11.5-14.5)
[2019-01-17] MEDS: HYDROCORTISONE 100 MG INJ IV ×3 (06:01→22:16)
[2019-01-17] MEDS: PANTOPRAZOLE (EC) 40 MG TAB PO ×2 (06:01→17:45)
[2019-01-17] MEDS: PIPER-TAZO 3.375 GM IV (PMX) 100 ML IVPB (06:01)
[2019-01-17 06:07] LABS: ANION GAP 7 (5-13); BLOOD UREA NITROGEN 31 mg/dl (7-20); CALCIUM 8.9 mg/dl (8.4-10.2); CARBON DIOXIDE 24 mmol/L (21-31); CHLORIDE 106 mmol/L (97-110); Estimated GFR 48 mL/min (>60); GLUCOSE 98 mg/dl (70-220); MAGNESIUM 2.1 mg/dl (1.7-2.5); PHOSPHORUS 4.5 mg/dl (2.5-4.9); POTASSIUM 3.8 mmol/L (3.5-5.1); SODIUM 137 mmol/L (135-144)
[2019-01-17] MEDS: INSULIN ASPART [NOVOLOG] 3 ML PEN SC ×5 (08:23→22:30)
[2019-01-17] MEDS: SENNA TAB PO ×2 (08:29→22:19)
[2019-01-17] MEDS: CLARITHROMYCIN 500 MG TAB PO ×2 (08:29→22:17)
[2019-01-17] MEDS: AMOXICILLIN 500 MG CAP PO ×2 (08:29→22:18)
[2019-01-17] MEDS: METHIMAZOLE 5 MG TAB PO ×2 (08:30→22:18)
[2019-01-17] MEDS: BISMUTH SUBSALICYLATE 120 ML BTL PO ×4 (08:31→22:19)
[2019-01-17] MEDS: INSULIN GLARGINE [LANTus] (100 UNITS/ML) SYG SC (08:36)
[2019-01-17] MEDS: SOD CHLORIDE 0.9% 1,000 ML IV (13:51)
[2019-01-17] MEDS: ATORVASTATIN 10 MG TAB PO (22:16)
[2019-01-18] MEDS: ACCU-CHEK XX (01:30)
[2019-01-18 06:09] LABS: ADD MAN DIFF? NO
[2019-01-18] MEDS ORDERED: METOCLOPRAMIDE 10 MG INJ (06:09)
[2019-01-18 06:22] LABS: WHITE BLOOD COUNT 7.5 10^3/ul (4.8-10.8)
[2019-01-18 06:22] LABS: BASOPHILS % 0.1 % (0.0-2.0); HEMATOCRIT 30.9 % (42.0-52.0); HEMOGLOBIN 9.5 g/dl (14.0-18.0); LYMPHOCYTES # 0.8 10^3/ul (0.8-2.9); LYMPHOCYTES % 10.6 % (15.0-51.0); MEAN CORPUSCULAR HGB CONC 30.7 g/dl (32.0-37.0); MEAN PLATELET VOLUME 8.6 fl (7.4-10.4); MONOCYTE # 0.8 10^3/ul (0.3-0.9); MONOCYTES % 10.3 % (0.0-11.0); NEUTROPHIL # 5.8 10^3/ul (1.6-7.5); NEUTROPHILS % 77.3 % (39.0-77.0); PLATELET COUNT 181 10^3/UL (140-415); RED BLOOD COUNT 3.96 10^6/ul (4.70-6.10); RED CELL DISTRIBUTION WIDTH 20.1 % (11.5-14.5)
[2019-01-18] MEDS: HYDROCORTISONE 100 MG INJ IV ×2 (06:31→13:39)
[2019-01-18] MEDS: PANTOPRAZOLE (EC) 40 MG TAB PO ×2 (06:31→17:27)
[2019-01-18] MEDS: METOCLOPRAMIDE 10 MG INJ IV (06:31)
[2019-01-18 07:02] LABS: ANION GAP 10 (5-13); BLOOD UREA NITROGEN 31 mg/dl (7-20); CALCIUM 9.3 mg/dl (8.4-10.2); CARBON DIOXIDE 23 mmol/L (21-31); CHLORIDE 104 mmol/L (97-110); CREATININE 1.41 mg/dl (0.61-1.24); Estimated GFR 52 mL/min (>60); GLUCOSE 153 mg/dl (70-220); POTASSIUM 4.1 mmol/L (3.5-5.1); SODIUM 137 mmol/L (135-144)
[2019-01-18] MEDS: METHIMAZOLE 5 MG TAB PO ×2 (08:16→20:33)
[2019-01-18] MEDS: CLARITHROMYCIN 500 MG TAB PO ×2 (08:16→20:33)
[2019-01-18] MEDS: SENNA TAB PO ×2 (08:16→20:36)
[2019-01-18] MEDS: AMOXICILLIN 500 MG CAP PO ×2 (08:16→20:33)
[2019-01-18] MEDS: INSULIN ASPART [NOVOLOG] 3 ML PEN SC ×7 (08:18→20:37)
[2019-01-18] MEDS: BISMUTH SUBSALICYLATE 120 ML BTL PO ×4 (09:32→20:33)
[2019-01-18] MEDS: INSULIN GLARGINE [LANTus] (100 UNITS/ML) SYG SC (09:33)
[2019-01-18] MEDS: LACTATED RINGER'S 500 ML IV (18:30)
[2019-01-18] MEDS: ATORVASTATIN 10 MG TAB PO (20:33)
[2019-01-19] MEDS: ACCU-CHEK XX (02:00)
[2019-01-19] MEDS: COSYNTROPIN 0.25 MG INJ IV (05:13)
[2019-01-19] MEDS: PANTOPRAZOLE (EC) 40 MG TAB PO ×2 (05:18→17:50)
[2019-01-19 06:10] LABS: ADD MAN DIFF? NO
[2019-01-19 06:15] LABS: WHITE BLOOD COUNT 7.3 10^3/ul (4.8-10.8)
[2019-01-19 06:15] LABS: BASOPHILS % 0.1 % (0.0-2.0); EOSINOPHILS % 0.1 % (0.0-7.0); HEMATOCRIT 29.6 % (42.0-52.0); HEMOGLOBIN 9.3 g/dl (14.0-18.0); LYMPHOCYTES % 13.1 % (15.0-51.0); MEAN CORPUSCULAR HEMOGLOBIN 24.7 pg (29.0-33.0); MEAN CORPUSCULAR HGB CONC 31.4 g/dl (32.0-37.0); MEAN CORPUSCULAR VOLUME 78.5 fl (82.0-101.0); MEAN PLATELET VOLUME 9.1 fl (7.4-10.4); MONOCYTES % 13.2 % (0.0-11.0); NEUTROPHIL # 5.3 10^3/ul (1.6-7.5); NEUTROPHILS % 71.9 % (39.0-77.0); PLATELET COUNT 226 10^3/UL (140-415); RED BLOOD COUNT 3.77 10^6/ul (4.70-6.10); RED CELL DISTRIBUTION WIDTH 20.4 % (11.5-14.5)
[2019-01-19 07:13] LABS: ANION GAP 14 (5-13); BLOOD UREA NITROGEN 25 mg/dl (7-20); CARBON DIOXIDE 22 mmol/L (21-31); CHLORIDE 101 mmol/L (97-110); CREATININE 1.13 mg/dl (0.61-1.24); Estimated GFR > 60 mL/min (>60); GLUCOSE 257 mg/dl (70-220); MAGNESIUM 1.4 mg/dl (1.7-2.5); PHOSPHORUS 4.1 mg/dl (2.5-4.9); POTASSIUM 3.2 mmol/L (3.5-5.1); SODIUM 137 mmol/L (135-144)
[2019-01-19] MEDS: INSULIN ASPART [NOVOLOG] 3 ML PEN SC ×7 (08:15→22:44)
[2019-01-19] MEDS: HEPARIN 5,000 UNIT/1 ML VIAL SC ×2 (08:16→22:43)
[2019-01-19] MEDS: INSULIN GLARGINE [LANTus] (100 UNITS/ML) SYG SC (08:17)
[2019-01-19] MEDS: METHIMAZOLE 5 MG TAB PO ×2 (08:18→22:29)
[2019-01-19] MEDS: AMOXICILLIN 500 MG CAP PO ×2 (08:18→22:28)
[2019-01-19] MEDS: BISMUTH SUBSALICYLATE 120 ML BTL PO ×4 (08:18→22:29)
[2019-01-19] MEDS: CLARITHROMYCIN 500 MG TAB PO ×2 (08:18→22:28)
[2019-01-19] MEDS: SENNA TAB PO ×2 (08:18→22:28)
[2019-01-19] MEDS: HYDROCORTISONE 20 MG TAB PO (08:18)
[2019-01-19] MEDS: POTASSIUM CHLORIDE (SR) 20 MEQ TAB PO (09:41)
[2019-01-19] MEDS: MAGNESIUM SULFATE 4 GM/100 ML 100 ML IVPB (11:19)
[2019-01-19] MEDS: POTASSIUM CHLORIDE 100 ML IVPB ×2 (16:55→22:44)
[2019-01-19] MEDS ORDERED: HYDROCORTISONE 5 MG TAB PO ×2 (17:35→21:00)
[2019-01-19] MEDS: ATORVASTATIN 10 MG TAB PO (22:28)
[2019-01-20] MEDS: ACCU-CHEK XX (02:00)
[2019-01-20] MEDS: PANTOPRAZOLE (EC) 40 MG TAB PO ×2 (05:39→18:17)
[2019-01-20 07:48] LABS: ADD MAN DIFF? NO
[2019-01-20 07:51] LABS: WHITE BLOOD COUNT 6.1 10^3/ul (4.8-10.8)
[2019-01-20 07:51] LABS: BASOPHILS % 0.2 % (0.0-2.0); EOSINOPHILS % 0.5 % (0.0-7.0); HEMATOCRIT 23.2 % (42.0-52.0); HEMOGLOBIN 7.4 g/dl (14.0-18.0); LYMPHOCYTES # 1.1 10^3/ul (0.8-2.9); LYMPHOCYTES % 17.5 % (15.0-51.0); MEAN CORPUSCULAR HEMOGLOBIN 24.7 pg (29.0-33.0); MEAN CORPUSCULAR HGB CONC 31.9 g/dl (32.0-37.0); MEAN CORPUSCULAR VOLUME 77.6 fl (82.0-101.0); MEAN PLATELET VOLUME 8.9 fl (7.4-10.4); MONOCYTE # 0.9 10^3/ul (0.3-0.9); MONOCYTES % 15.4 % (0.0-11.0); NEUTROPHIL # 3.9 10^3/ul (1.6-7.5); NEUTROPHILS % 64.6 % (39.0-77.0); PLATELET COUNT 126 10^3/UL (140-415); RED BLOOD COUNT 2.99 10^6/ul (4.70-6.10); RED CELL DISTRIBUTION WIDTH 20.5 % (11.5-14.5)
[2019-01-20] MEDS: INSULIN ASPART [NOVOLOG] 3 ML PEN SC ×7 (08:00→21:00)
[2019-01-20 08:15] LABS: ANION GAP 5 (5-13); BLOOD UREA NITROGEN 19 mg/dl (7-20); CALCIUM 8.2 mg/dl (8.4-10.2); CARBON DIOXIDE 27 mmol/L (21-31); CHLORIDE 101 mmol/L (97-110); CREATININE 0.85 mg/dl (0.61-1.24); Estimated GFR > 60 mL/min (>60); GLUCOSE 110 mg/dl (70-220); POTASSIUM 3.5 mmol/L (3.5-5.1); SODIUM 133 mmol/L (135-144)
[2019-01-20] MEDS: SENNA TAB PO ×2 (09:10→21:56)
[2019-01-20] MEDS: METHIMAZOLE 5 MG TAB PO ×2 (09:11→21:57)
[2019-01-20] MEDS: CLARITHROMYCIN 500 MG TAB PO ×2 (09:11→21:57)
[2019-01-20] MEDS: HEPARIN 5,000 UNIT/1 ML VIAL SC ×2 (09:12→22:03)
[2019-01-20] MEDS: AMOXICILLIN 500 MG CAP PO ×2 (09:12→21:57)
[2019-01-20] MEDS: morphine 2 MG INJ IV (09:13)
[2019-01-20] MEDS: BISMUTH SUBSALICYLATE 120 ML BTL PO ×4 (09:14→23:24)
[2019-01-20] MEDS: INSULIN GLARGINE [LANTus] (100 UNITS/ML) SYG SC (09:25)
[2019-01-20 10:10] LABS: ADD MAN DIFF? NO
[2019-01-20 10:13] LABS: WHITE BLOOD COUNT 7.2 10^3/ul (4.8-10.8)
[2019-01-20 10:13] LABS: BASOPHILS % 0.1 % (0.0-2.0); EOSINOPHILS % 0.3 % (0.0-7.0); HEMATOCRIT 26.8 % (42.0-52.0); HEMOGLOBIN 8.3 g/dl (14.0-18.0); LYMPHOCYTES % 14.5 % (15.0-51.0); MEAN CORPUSCULAR HEMOGLOBIN 24.5 pg (29.0-33.0); MEAN CORPUSCULAR VOLUME 79.1 fl (82.0-101.0); MEAN PLATELET VOLUME 8.8 fl (7.4-10.4); MONOCYTE # 1.1 10^3/ul (0.3-0.9); MONOCYTES % 15.2 % (0.0-11.0); NEUTROPHIL # 4.9 10^3/ul (1.6-7.5); NEUTROPHILS % 68.2 % (39.0-77.0); PLATELET COUNT 138 10^3/UL (140-415); RED BLOOD COUNT 3.39 10^6/ul (4.70-6.10); RED CELL DISTRIBUTION WIDTH 21.1 % (11.5-14.5)
[2019-01-20] MEDS: POTASSIUM CHLORIDE (SR) 20 MEQ TAB PO (14:26)
[2019-01-20] MEDS: ATORVASTATIN 10 MG TAB PO (21:57)
[2019-01-21] MEDS: ACCU-CHEK XX (02:00)
[2019-01-21] MEDS: PANTOPRAZOLE (EC) 40 MG TAB PO ×2 (06:07→17:48)
[2019-01-21 06:17] LABS: ADD MAN DIFF? NO
[2019-01-21 06:30] LABS: WHITE BLOOD COUNT 5.6 10^3/ul (4.8-10.8)
[2019-01-21 06:30] LABS: EOSINOPHILS % 0.5 % (0.0-7.0); HEMATOCRIT 24.8 % (42.0-52.0); HEMOGLOBIN 7.8 g/dl (14.0-18.0); LYMPHOCYTES # 1.2 10^3/ul (0.8-2.9); LYMPHOCYTES % 21.1 % (15.0-51.0); MEAN CORPUSCULAR HEMOGLOBIN 24.5 pg (29.0-33.0); MEAN CORPUSCULAR HGB CONC 31.5 g/dl (32.0-37.0); MEAN CORPUSCULAR VOLUME 77.7 fl (82.0-101.0); MEAN PLATELET VOLUME 8.9 fl (7.4-10.4); MONOCYTE # 1.1 10^3/ul (0.3-0.9); NEUTROPHIL # 3.3 10^3/ul (1.6-7.5); NEUTROPHILS % 58.3 % (39.0-77.0); PLATELET COUNT 109 10^3/UL (140-415); RED BLOOD COUNT 3.19 10^6/ul (4.70-6.10); RED CELL DISTRIBUTION WIDTH 20.7 % (11.5-14.5)
[2019-01-21 06:43] LABS: ANION GAP 8 (5-13); BLOOD UREA NITROGEN 17 mg/dl (7-20); CALCIUM 8.2 mg/dl (8.4-10.2); CARBON DIOXIDE 28 mmol/L (21-31); CHLORIDE 93 mmol/L (97-110); CREATININE 0.77 mg/dl (0.61-1.24); Estimated GFR > 60 mL/min (>60); GLUCOSE 218 mg/dl (70-220); POTASSIUM 3.9 mmol/L (3.5-5.1); SODIUM 129 mmol/L (135-144)
[2019-01-21] MEDS: INSULIN ASPART [NOVOLOG] 3 ML PEN SC ×7 (08:10→21:00)
[2019-01-21] MEDS: ACETAMINOPHEN 325 MG TAB PO (08:11)
[2019-01-21] MEDS: BISMUTH SUBSALICYLATE 120 ML BTL PO ×4 (09:00→22:25)
[2019-01-21] MEDS: AMOXICILLIN 500 MG CAP PO ×2 (09:39→22:26)
[2019-01-21] MEDS: SENNA TAB PO ×2 (09:39→22:26)
[2019-01-21] MEDS: CLARITHROMYCIN 500 MG TAB PO ×2 (09:39→22:26)
[2019-01-21] MEDS: METHIMAZOLE 5 MG TAB PO ×2 (09:39→23:45)
[2019-01-21] MEDS: INSULIN GLARGINE [LANTus] (100 UNITS/ML) SYG SC ×2 (09:41→13:38)
[2019-01-21] MEDS: HEPARIN 5,000 UNIT/1 ML VIAL SC ×2 (09:41→22:32)
[2019-01-21] MEDS: MAGNESIUM SULFATE 6 GM in DEXTROSE 5% 100 ML IVPB (11:08)
[2019-01-21 12:13] LABS: C-REACTIVE PROTEIN 4.8 mg/dl (0.0-0.9)
[2019-01-21 12:47] LABS: IRON 13 ug/dl (35-150)
[2019-01-21 12:48] LABS: ALANINE AMINOTRANSFERASE 72 IU/L (13-69); ALBUMIN 2.3 g/dl (3.3-4.9); ALKALINE PHOSPHATASE 134 IU/L (42-121); ASPARTATE AMINO TRANSFERASE 78 IU/L (15-46); BILIRUBIN,INDIRECT 0.3 mg/dl (0-1.1); BILIRUBIN,TOTAL 0.3 mg/dl (0.2-1.3); TOTAL PROTEIN 5.6 g/dl (6.1-8.1)
[2019-01-21 12:57] LABS: % IRON SATURATION 6 % SAT (22-52); TOTAL IRON BINDING CAPACITY 204 ug/dl (241-421)
[2019-01-21 15:14] LABS: CREATINE KINASE 20 IU/L (23-200)
[2019-01-21] MEDS: ATORVASTATIN 10 MG TAB PO (22:26)
[2019-01-21 23:17] LABS: ADD UMIC YES; UR ASCORBIC ACID NEGATIVE (NEGATIVE); UR BILIRUBIN (Dip) NEGATIVE (NEGATIVE); UR BLOOD (Dip) 1+ mg/dL (NEGATIVE); UR CLARITY CLEAR (CLEAR); UR COLOR STRAW (YELLOW); UR GLUCOSE (Dip) NEGATIVE (NEGATIVE); UR KETONES (Dip) NEGATIVE (NEGATIVE); UR LEUKOCYTE ESTERASE (Dip) TRACE Leu/ul (NEGATIVE); UR NITRITE (Dip) NEGATIVE (NEGATIVE); UR RBC 3 /HPF (0-5); UR SPECIFIC GRAVITY (Dip) 1.006 (1.003-1.030); UR SQUAMOUS EPITHELIAL CELL FEW /HPF (FEW); UR TOTAL PROTEIN (Dip) NEGATIVE (NEGATIVE); UR UROBILINOGEN (Dip) NEGATIVE (NEGATIVE); UR WBC 8 /HPF (0-5)
[2019-01-21 23:18] LABS: SODIUM,URINE RANDOM 109 mmol/L (30-90)
[2019-01-22] MEDS: ACCU-CHEK XX (02:00)
[2019-01-22] MEDS: ONDANSETRON 4 MG INJ IV (02:52)
[2019-01-22] MEDS: ACETAMINOPHEN 325 MG TAB PO (02:58)
[2019-01-22] MEDS: PANTOPRAZOLE (EC) 40 MG TAB PO ×2 (05:37→17:35)
[2019-01-22] MEDS: INSULIN ASPART [NOVOLOG] 3 ML PEN SC ×7 (08:00→21:00)
[2019-01-22 08:12] LABS: FREE T3 4.95 pg/ml (2.77-5.27)
[2019-01-22 08:13] LABS: FREE T4 (FREE THYROXINE) 3.65 ng/dl (0.64-1.79)
[2019-01-22] MEDS: BISMUTH SUBSALICYLATE 120 ML BTL PO ×4 (08:41→21:00)
[2019-01-22] MEDS: METHIMAZOLE 5 MG TAB PO ×2 (08:41→22:41)
[2019-01-22] MEDS: CLARITHROMYCIN 500 MG TAB PO ×2 (08:42→22:41)
[2019-01-22] MEDS: SENNA TAB PO ×2 (08:43→22:40)
[2019-01-22] MEDS: INSULIN GLARGINE [LANTus] (100 UNITS/ML) SYG SC (08:47)
[2019-01-22] MEDS: HEPARIN 5,000 UNIT/1 ML VIAL SC ×2 (08:47→22:48)
[2019-01-22] MEDS: AMOXICILLIN 500 MG CAP PO ×2 (08:50→22:41)
[2019-01-22 10:01] LABS: MAGNESIUM 1.3 mg/dl (1.7-2.5)
[2019-01-22] MEDS: CEFEPIME 1GM/50 ML (PMX) 50 ML IVPB (10:02)
[2019-01-22] MEDS: SOD FERRIC GLUC COMPLX 125 MG in SOD CHLORIDE 0.9% 100 ML IVPB (12:38)
[2019-01-22] MEDS: COLLAGENASE 5 GM (UD JAR) TOP (13:00)
[2019-01-22] MEDS: DAKINS 0.0125%(1/40) 473 ML SOLUTION TP (13:43)
[2019-01-22] MEDS: NYSTATIN SUSP 5 ML CUP PO ×3 (13:50→22:41)
[2019-01-22] MEDS: MAGNESIUM SULFATE 3 GM in DEXTROSE 5% 100 ML IVPB (14:53)
[2019-01-22 15:11] LABS: ANA SCREEN NEGATIVE (NEGATIVE)
[2019-01-22] MEDS: ATORVASTATIN 10 MG TAB PO (22:41)
[2019-01-23] MEDS: ACCU-CHEK XX (02:00)
[2019-01-23] MEDS: ACETAMINOPHEN 325 MG TAB PO ×2 (03:49→13:55)
[2019-01-23 06:10] LABS: WHITE BLOOD COUNT 5.2 10^3/ul (4.8-10.8)
[2019-01-23 06:10] LABS: HEMATOCRIT 22.1 % (42.0-52.0); HEMOGLOBIN 7.1 g/dl (14.0-18.0); MEAN CORPUSCULAR HEMOGLOBIN 24.5 pg (29.0-33.0); MEAN CORPUSCULAR HGB CONC 32.1 g/dl (32.0-37.0); MEAN CORPUSCULAR VOLUME 76.2 fl (82.0-101.0); MEAN PLATELET VOLUME 9.6 fl (7.4-10.4); PLATELET COUNT 104 10^3/UL (140-415); POSITIVE DIFF @See below; RED CELL DISTRIBUTION WIDTH 20.4 % (11.5-14.5)
[2019-01-23] MEDS: PANTOPRAZOLE (EC) 40 MG TAB PO ×2 (06:11→18:01)
[2019-01-23 06:14] LABS: ADD MAN DIFF? YES
[2019-01-23 06:36] LABS: ALANINE AMINOTRANSFERASE 39 IU/L (13-69); ALBUMIN 2.1 g/dl (3.3-4.9); ALBUMIN/GLOBULIN RATIO 0.65; ALKALINE PHOSPHATASE 113 IU/L (42-121); ANION GAP 6 (5-13); ASPARTATE AMINO TRANSFERASE 51 IU/L (15-46); BILIRUBIN,INDIRECT 0.4 mg/dl (0-1.1); BILIRUBIN,TOTAL 0.4 mg/dl (0.2-1.3); BLOOD UREA NITROGEN 7 mg/dl (7-20); CALCIUM 7.9 mg/dl (8.4-10.2); CARBON DIOXIDE 31 mmol/L (21-31); CHLORIDE 89 mmol/L (97-110); CREATININE 0.57 mg/dl (0.61-1.24); Estimated GFR > 60 mL/min (>60); GLUCOSE 93 mg/dl (70-220); SODIUM 126 mmol/L (135-144); TOTAL PROTEIN 5.3 g/dl (6.1-8.1)
[2019-01-23 07:10] LABS: ANISOCYTOSIS 1+ (0-0); BAND NEUTROPHILS #M 0.2 10^3/ul (0.0-0.6); BAND NEUTROPHILS % (M) 5 % (0-4); EOSINOPHILS % (M) 1 % (0-7); HYPOCHROMASIA 1+ (0-0); LYMPHOCYTES #M 0.7 10^3/ul (0.8-2.9); LYMPHOCYTES % (M) 15 % (15-51); MONOCYTE #M 0.4 10^3/ul (0.3-0.9); MONOCYTES % (M) 9 % (0-11); PLATELET ESTIMATE DECREASED; POIKILOCYTOSIS 1+ (0-0); POLYCHROMASIA 1+ (0-0); SEG NEUT #M 3.7 10^3/ul (1.6-7.5); SEGMENTED NEUTROPHILS (M) % 70 % (39-77); SMUDGE%M 5 % (0-0)
[2019-01-23] MEDS: INSULIN ASPART [NOVOLOG] 3 ML PEN SC ×4 (08:00→21:00)
[2019-01-23] MEDS: SENNA TAB PO ×4 (09:00→21:24)
[2019-01-23] MEDS: NYSTATIN SUSP 5 ML CUP PO ×4 (09:46→20:59)
[2019-01-23] MEDS: AMOXICILLIN 500 MG CAP PO ×2 (09:46→20:58)
[2019-01-23] MEDS: CLARITHROMYCIN 500 MG TAB PO ×2 (09:47→20:58)
[2019-01-23] MEDS: POTASSIUM CHLORIDE (SR) 20 MEQ TAB PO ×2 (09:48→13:20)
[2019-01-23] MEDS: SOD CHLORIDE 0.9% 1,000 ML IV (09:48)
[2019-01-23] MEDS: METHIMAZOLE 5 MG TAB PO ×2 (09:48→20:58)
[2019-01-23] MEDS: INSULIN GLARGINE [LANTus] (100 UNITS/ML) SYG SC (10:02)
[2019-01-23] MEDS: PIPER-TAZO 3.375 GM IV (PMX) 100 ML IVPB ×2 (13:16→18:01)
[2019-01-23] MEDS: BISMUTH SUBSALICYLATE 120 ML BTL PO ×3 (13:19→21:00)
[2019-01-23 13:32] LABS: HEMATOCRIT 24.4 % (42.0-52.0); HEMOGLOBIN 7.8 g/dl (14.0-18.0)
[2019-01-23] MEDS: SOD FERRIC GLUC COMPLX 125 MG in SOD CHLORIDE 0.9% 100 ML IVPB (13:45)
[2019-01-23] MEDS: FLUCONAZOLE 100 MG/50 ML (PMX) 50 ML IVPB (15:19)
[2019-01-23] MEDS: ATORVASTATIN 10 MG TAB PO (20:59)
[2019-01-23] MEDS: ONDANSETRON 4 MG INJ IV (21:22)
[2019-01-23] MEDS: SOD CHLORIDE 0.9% 250 ML IV (23:54)
[2019-01-24] MEDS: PIPER-TAZO 3.375 GM IV (PMX) 100 ML IVPB ×4 (00:50→17:40)
[2019-01-24] MEDS: ACCU-CHEK XX (02:00)
[2019-01-24] MEDS: SOD CHLORIDE 0.9% 1,000 ML IV ×3 (05:30→13:09)
[2019-01-24] MEDS: PANTOPRAZOLE (EC) 40 MG TAB PO ×2 (06:10→17:39)
[2019-01-24 06:23] LABS: ABNORMAL IP MESSAGE 1; HEMATOCRIT 26.2 % (42.0-52.0); HEMOGLOBIN 8.4 g/dl (14.0-18.0); MEAN CORPUSCULAR HEMOGLOBIN 24.6 pg (29.0-33.0); MEAN CORPUSCULAR HGB CONC 32.1 g/dl (32.0-37.0); MEAN CORPUSCULAR VOLUME 76.8 fl (82.0-101.0); PLATELET COUNT 68 10^3/UL (140-415); POSITIVE DIFF @See below; RED BLOOD COUNT 3.41 10^6/ul (4.70-6.10); RED CELL DISTRIBUTION WIDTH 20.4 % (11.5-14.5)
[2019-01-24 06:25] LABS: ADD MAN DIFF? YES
[2019-01-24 06:45] LABS: MAGNESIUM 1.3 mg/dl (1.7-2.5)
[2019-01-24 07:06] LABS: ALANINE AMINOTRANSFERASE 23 IU/L (13-69); ALBUMIN 2.2 g/dl (3.3-4.9); ALBUMIN/GLOBULIN RATIO 0.66; ALKALINE PHOSPHATASE 113 IU/L (42-121); ANION GAP 8 (5-13); ASPARTATE AMINO TRANSFERASE 70 IU/L (15-46); BILIRUBIN,INDIRECT 0.2 mg/dl (0-1.1); BILIRUBIN,TOTAL 0.2 mg/dl (0.2-1.3); BLOOD UREA NITROGEN 8 mg/dl (7-20); CALCIUM 8.1 mg/dl (8.4-10.2); CARBON DIOXIDE 29 mmol/L (21-31); CHLORIDE 89 mmol/L (97-110); CREATININE 0.65 mg/dl (0.61-1.24); Estimated GFR > 60 mL/min (>60); GLUCOSE 79 mg/dl (70-220); POTASSIUM 3.7 mmol/L (3.5-5.1); SODIUM 126 mmol/L (135-144); TOTAL PROTEIN 5.5 g/dl (6.1-8.1)
[2019-01-24 07:52] LABS: ANISOCYTOSIS 2+ (0-0); BASOPHILS % (M) 1 % (0-2); LYMPHOCYTES #M 0.5 10^3/ul (0.8-2.9); LYMPHOCYTES % (M) 9 % (15-51); MICROCYTOSIS 1+ (0-0); MONOCYTE #M 0.3 10^3/ul (0.3-0.9); MONOCYTES % (M) 6 % (0-11); OVALOCYTES 1+ (0-0); PLATELET ESTIMATE SIG DECREASED; POIKILOCYTOSIS 1+ (0-0); POLYCHROMASIA 3+ (0-0); REACTIVE LYMPHOCYTES% (M) 1 % (0-0); SEGMENTED NEUTROPHILS (M) % 83 % (39-77); SMUDGE%M 19 % (0-0); TARGET CELLS 1+ (0-0)
[2019-01-24] MEDS: INSULIN ASPART [NOVOLOG] 3 ML PEN SC ×4 (08:00→20:18)
[2019-01-24] MEDS: AMOXICILLIN 500 MG CAP PO ×2 (08:37→13:08)
[2019-01-24] MEDS: METHIMAZOLE 5 MG TAB PO ×3 (08:37→22:09)
[2019-01-24] MEDS: CLARITHROMYCIN 500 MG TAB PO ×2 (08:37→13:07)
[2019-01-24] MEDS: NYSTATIN SUSP 5 ML CUP PO ×5 (08:37→20:17)
[2019-01-24] MEDS: ACETAMINOPHEN 325 MG TAB PO ×2 (08:37→20:28)
[2019-01-24] MEDS: ONDANSETRON 4 MG INJ IV ×2 (08:41→11:54)
[2019-01-24] MEDS: BISMUTH SUBSALICYLATE 120 ML BTL PO ×4 (11:55→20:17)
[2019-01-24] MEDS: INSULIN GLARGINE [LANTus] (100 UNITS/ML) SYG SC (12:00)
[2019-01-24] MEDS: MAGNESIUM SULFATE 4 GM/100 ML 100 ML IVPB (13:18)
[2019-01-24] MEDS: SOD FERRIC GLUC COMPLX 125 MG in SOD CHLORIDE 0.9% 100 ML IVPB (14:38)
[2019-01-24 17:05] LABS: LACTIC ACID 1.6 mmol/L (0.5-2.0)
[2019-01-24] MEDS: SENNA TAB PO (20:17)
[2019-01-24] MEDS: ATORVASTATIN 10 MG TAB PO (20:17)
[2019-01-24] MEDS ORDERED: METHIMAZOLE 5 MG TAB PO (21:00)
[2019-01-25] MEDS: PIPER-TAZO 3.375 GM IV (PMX) 100 ML IVPB ×5 (00:32→23:29)
[2019-01-25] MEDS: ACCU-CHEK XX (01:05)
[2019-01-25] MEDS: SOD CHLORIDE 0.9% 500 ML IV (04:18)
[2019-01-25] MEDS: METOPROLOL 5 MG INJ IV (05:12)
[2019-01-25] MEDS: ADENOSINE 6 MG INJ IV ×2 (05:12→05:14)
[2019-01-25] MEDS: ADENOSINE 3 MG/ML SYRINGE IV (05:12)
[2019-01-25] MEDS: DILTIAZEM-D5W 125MG/125ML DRIP 125 ML IV ×4 (05:16→22:30)
[2019-01-25 06:18] LABS: ADD MAN DIFF? NO
[2019-01-25 06:19] LABS: WHITE BLOOD COUNT 7.7 10^3/ul (4.8-10.8)
[2019-01-25 06:19] LABS: ABNORMAL IP MESSAGE 1; BASOPHILS % 0.3 % (0.0-2.0); EOSINOPHILS % 0.3 % (0.0-7.0); HEMATOCRIT 31.2 % (42.0-52.0); HEMOGLOBIN 9.7 g/dl (14.0-18.0); LYMPHOCYTES % 12.5 % (15.0-51.0); MEAN CORPUSCULAR HEMOGLOBIN 24.5 pg (29.0-33.0); MEAN CORPUSCULAR HGB CONC 31.1 g/dl (32.0-37.0); MEAN CORPUSCULAR VOLUME 78.8 fl (82.0-101.0); MEAN PLATELET VOLUME 10.9 fl (7.4-10.4); MONOCYTE # 0.7 10^3/ul (0.3-0.9); MONOCYTES % 8.9 % (0.0-11.0); NEUTROPHILS % 77.2 % (39.0-77.0); POSITIVE DIFF @See below; RED BLOOD COUNT 3.96 10^6/ul (4.70-6.10); RED CELL DISTRIBUTION WIDTH 20.5 % (11.5-14.5)
[2019-01-25] MEDS: PANTOPRAZOLE (EC) 40 MG TAB PO ×2 (06:26→17:32)
[2019-01-25 06:31] LABS: PLATELET COUNT 76 10^3/UL (140-415)
[2019-01-25 06:51] LABS: ALANINE AMINOTRANSFERASE 39 IU/L (13-69); ALBUMIN 2.4 g/dl (3.3-4.9); ALKALINE PHOSPHATASE 167 IU/L (42-121); ANION GAP 8 (5-13); ASPARTATE AMINO TRANSFERASE 62 IU/L (15-46); BILIRUBIN,INDIRECT 0.4 mg/dl (0-1.1); BILIRUBIN,TOTAL 0.4 mg/dl (0.2-1.3); BLOOD UREA NITROGEN 6 mg/dl (7-20); CALCIUM 8.4 mg/dl (8.4-10.2); CARBON DIOXIDE 29 mmol/L (21-31); CHLORIDE 93 mmol/L (97-110); CREATININE 0.71 mg/dl (0.61-1.24); Estimated GFR > 60 mL/min (>60); GLUCOSE 54 mg/dl (70-220); POTASSIUM 3.3 mmol/L (3.5-5.1); SODIUM 130 mmol/L (135-144); TOTAL PROTEIN 5.8 g/dl (6.1-8.1)
[2019-01-25 06:55] LABS: MAGNESIUM 1.7 mg/dl (1.7-2.5)
[2019-01-25] MEDS ORDERED: ADENOSINE 3 MG/ML SYRINGE IV (07:00)
[2019-01-25] MEDS ORDERED: METOPROLOL 5 MG INJ (07:00)
[2019-01-25] MEDS: INSULIN ASPART [NOVOLOG] 3 ML PEN SC ×4 (07:55→20:58)
[2019-01-25] MEDS: METHIMAZOLE 5 MG TAB PO (08:28)
[2019-01-25] MEDS: SENNA TAB PO ×2 (08:28→20:04)
[2019-01-25] MEDS: BISMUTH SUBSALICYLATE 120 ML BTL PO ×3 (08:28→17:27)
[2019-01-25] MEDS: NYSTATIN SUSP 5 ML CUP PO ×4 (08:28→20:05)
[2019-01-25] MEDS: INSULIN GLARGINE [LANTus] (100 UNITS/ML) SYG SC (08:37)
[2019-01-25] MEDS: SOD FERRIC GLUC COMPLX 125 MG in SOD CHLORIDE 0.9% 100 ML IVPB (13:25)
[2019-01-25] MEDS: BISMUTH SUBSALICYLATE 240 ML BTL PO ×2 (17:30→20:11)
[2019-01-25] MEDS: CLARITHROMYCIN 500 MG TAB PO (19:00)
[2019-01-25] MEDS: ATORVASTATIN 10 MG TAB PO (20:04)
[2019-01-25] MEDS: AMOXICILLIN 500 MG CAP PO (20:04)
[2019-01-25] MEDS: ACETAMINOPHEN 325 MG TAB PO (20:05)
[2019-01-25] MEDS: POTASSIUM CHLORIDE (SR) 20 MEQ TAB PO (22:30)
[2019-01-26] MEDS: ACCU-CHEK XX (01:26)
[2019-01-26] MEDS: PANTOPRAZOLE (EC) 40 MG TAB PO ×2 (05:28→17:16)
[2019-01-26] MEDS: PIPER-TAZO 3.375 GM IV (PMX) 100 ML IVPB ×4 (05:28→23:36)
[2019-01-26] MEDS: INSULIN ASPART [NOVOLOG] 3 ML PEN SC ×4 (07:55→20:08)
[2019-01-26] MEDS: BISMUTH SUBSALICYLATE 240 ML BTL PO ×4 (08:37→20:08)
[2019-01-26] MEDS: NYSTATIN SUSP 5 ML CUP PO ×4 (08:37→20:08)
[2019-01-26] MEDS: AMOXICILLIN 500 MG CAP PO ×2 (08:38→20:08)
[2019-01-26] MEDS: SENNA TAB PO ×2 (08:38→20:08)
[2019-01-26] MEDS: CLARITHROMYCIN 500 MG TAB PO ×2 (08:38→20:08)
[2019-01-26] MEDS: INSULIN GLARGINE [LANTus] (100 UNITS/ML) SYG SC (08:50)
[2019-01-26] MEDS: SOD FERRIC GLUC COMPLX 125 MG in SOD CHLORIDE 0.9% 100 ML IVPB (13:14)
[2019-01-26] MEDS: DILTIAZEM-D5W 125MG/125ML DRIP 125 ML IV ×2 (14:45→23:37)
[2019-01-26 17:42] LABS: OCCULT BLOOD STOOL NEGATIVE (NEGATIVE)
[2019-01-26] MEDS: ATORVASTATIN 10 MG TAB PO (20:08)
[2019-01-26] MEDS: ACETAMINOPHEN 325 MG TAB PO (23:28)
[2019-01-27] MEDS: ACCU-CHEK XX (01:21)
[2019-01-27] MEDS: DILTIAZEM-D5W 125MG/125ML DRIP 125 ML IV ×2 (03:02→09:14)
[2019-01-27] MEDS: PANTOPRAZOLE (EC) 40 MG TAB PO ×2 (05:06→17:48)
[2019-01-27] MEDS: PIPER-TAZO 3.375 GM IV (PMX) 100 ML IVPB ×3 (05:06→17:49)
[2019-01-27 08:23] LABS: ADD MAN DIFF? NO
[2019-01-27 08:32] LABS: ABNORMAL IP MESSAGE 1; BASOPHILS % 0.3 % (0.0-2.0); EOSINOPHILS % 0.6 % (0.0-7.0); HEMATOCRIT 25.6 % (42.0-52.0); HEMOGLOBIN 8.3 g/dl (14.0-18.0); LYMPHOCYTES # 1.3 10^3/ul (0.8-2.9); LYMPHOCYTES % 18.6 % (15.0-51.0); MEAN CORPUSCULAR HEMOGLOBIN 24.8 pg (29.0-33.0); MEAN CORPUSCULAR HGB CONC 32.4 g/dl (32.0-37.0); MEAN CORPUSCULAR VOLUME 76.4 fl (82.0-101.0); MEAN PLATELET VOLUME 9.8 fl (7.4-10.4); MONOCYTE # 0.9 10^3/ul (0.3-0.9); MONOCYTES % 13.2 % (0.0-11.0); NEUTROPHIL # 4.7 10^3/ul (1.6-7.5); NEUTROPHILS % 66.4 % (39.0-77.0); PLATELET COUNT 72 10^3/UL (140-415); POSITIVE DIFF @See below; RED BLOOD COUNT 3.35 10^6/ul (4.70-6.10); RED CELL DISTRIBUTION WIDTH 20.5 % (11.5-14.5)
[2019-01-27 08:32] LABS: WHITE BLOOD COUNT 7.1 10^3/ul (4.8-10.8)
[2019-01-27] MEDS: NYSTATIN SUSP 5 ML CUP PO ×4 (08:36→21:30)
[2019-01-27] MEDS: CLARITHROMYCIN 500 MG TAB PO ×2 (08:36→21:31)
[2019-01-27] MEDS: AMOXICILLIN 500 MG CAP PO ×2 (08:36→21:31)
[2019-01-27] MEDS: SENNA TAB PO ×2 (08:36→21:30)
[2019-01-27 08:45] LABS: ANION GAP 6 (5-13); BLOOD UREA NITROGEN 5 mg/dl (7-20); CALCIUM 8.1 mg/dl (8.4-10.2); CARBON DIOXIDE 27 mmol/L (21-31); CHLORIDE 90 mmol/L (97-110); CREATININE 0.69 mg/dl (0.61-1.24); Estimated GFR > 60 mL/min (>60); GLUCOSE 106 mg/dl (70-220); MAGNESIUM 1.3 mg/dl (1.7-2.5); POTASSIUM 3.5 mmol/L (3.5-5.1); SODIUM 123 mmol/L (135-144)
[2019-01-27] MEDS: BISMUTH SUBSALICYLATE 240 ML BTL PO ×4 (09:00→21:43)
[2019-01-27] MEDS: INSULIN ASPART [NOVOLOG] 3 ML PEN SC ×4 (09:16→20:44)
[2019-01-27] MEDS: INSULIN GLARGINE [LANTus] (100 UNITS/ML) SYG SC (09:33)
[2019-01-27] MEDS: LIDOCAINE 1% (MDV) 20 ML INJ (20:45)
[2019-01-27] MEDS: MIDAZOLAM 1 MG/ML 2 ML INJ (20:45)
[2019-01-27] MEDS: SOD CHLORIDE 0.9% 500 ML (20:45)
[2019-01-27] MEDS: FENTAnyl 50 MCG/ML VIAL (20:45)
[2019-01-27] MEDS: ATORVASTATIN 10 MG TAB PO (21:31)
[2019-01-27] MEDS: SODIUM CHLORIDE 1 GM TAB PO (21:43)
[2019-01-27] MEDS: ACETAMINOPHEN 325 MG TAB PO (21:53)
[2019-01-28] MEDS: PIPER-TAZO 3.375 GM IV (PMX) 100 ML IVPB ×3 (00:32→11:57)
[2019-01-28] MEDS: SOD CHLORIDE 0.9% 500 ML IV (01:05)
[2019-01-28] MEDS: PANTOPRAZOLE (EC) 40 MG TAB PO ×2 (06:04→17:11)
[2019-01-28] MEDS: INSULIN ASPART [NOVOLOG] 3 ML PEN SC ×4 (07:55→22:16)
[2019-01-28] MEDS: NYSTATIN SUSP 5 ML CUP PO ×4 (09:05→20:23)
[2019-01-28] MEDS: SENNA TAB PO ×2 (09:06→20:24)
[2019-01-28] MEDS: CLARITHROMYCIN 500 MG TAB PO ×2 (09:06→20:24)
[2019-01-28] MEDS: SODIUM CHLORIDE 1 GM TAB PO ×3 (09:06→20:24)
[2019-01-28] MEDS: AMOXICILLIN 500 MG CAP PO ×2 (09:06→20:24)
[2019-01-28] MEDS: BISMUTH SUBSALICYLATE 240 ML BTL PO ×4 (09:11→20:29)
[2019-01-28] MEDS: INSULIN GLARGINE [LANTus] (100 UNITS/ML) SYG SC (10:06)
[2019-01-28] MEDS: METOPROLOL 50 MG TAB PO ×2 (10:14→20:24)
[2019-01-28 12:06] LABS: ANION GAP 7 (5-13); BLOOD UREA NITROGEN 6 mg/dl (7-20); CARBON DIOXIDE 26 mmol/L (21-31); CHLORIDE 91 mmol/L (97-110); Estimated GFR > 60 mL/min (>60); GLUCOSE 139 mg/dl (70-220); POTASSIUM 3.6 mmol/L (3.5-5.1); SODIUM 124 mmol/L (135-144)
[2019-01-28 15:24] LABS: LACTATE DEHYDROGENASE 2366 IU/L (313-618)
[2019-01-28] MEDS: ACETAMINOPHEN 325 MG TAB PO (17:12)
[2019-01-28] MEDS: ATORVASTATIN 10 MG TAB PO (20:24)
[2019-01-29] MEDS: PANTOPRAZOLE (EC) 40 MG TAB PO ×2 (06:13→18:25)
[2019-01-29] MEDS: ACETAMINOPHEN 325 MG TAB PO ×2 (06:15→12:50)
[2019-01-29] MEDS: HYDROCODONE/APAP (5/325) TAB PO (08:23)
[2019-01-29] MEDS: INSULIN ASPART [NOVOLOG] 3 ML PEN SC ×4 (08:30→21:00)
[2019-01-29] MEDS: METOPROLOL 50 MG TAB PO ×3 (09:00→21:21)
[2019-01-29] MEDS: CLARITHROMYCIN 500 MG TAB PO (09:58)
[2019-01-29] MEDS: AMOXICILLIN 500 MG CAP PO (09:58)
[2019-01-29] MEDS: SENNA TAB PO ×2 (09:59→21:22)
[2019-01-29] MEDS: BISMUTH SUBSALICYLATE 240 ML BTL PO ×4 (09:59→21:22)
[2019-01-29] MEDS: NYSTATIN SUSP 5 ML CUP PO (09:59)
[2019-01-29] MEDS: SODIUM CHLORIDE 1 GM TAB PO ×3 (09:59→21:22)
[2019-01-29] MEDS: INSULIN GLARGINE [LANTus] (100 UNITS/ML) SYG SC (11:15)
[2019-01-29 11:27] LABS: ABNORMAL IP MESSAGE 1; HEMOGLOBIN 7.9 g/dl (14.0-18.0); MEAN CORPUSCULAR HEMOGLOBIN 24.6 pg (29.0-33.0); MEAN CORPUSCULAR HGB CONC 31.6 g/dl (32.0-37.0); MEAN CORPUSCULAR VOLUME 77.9 fl (82.0-101.0); MEAN PLATELET VOLUME 9.8 fl (7.4-10.4); PLATELET COUNT 94 10^3/UL (140-415); POSITIVE DIFF @See below; RED BLOOD COUNT 3.21 10^6/ul (4.70-6.10); RED CELL DISTRIBUTION WIDTH 20.3 % (11.5-14.5)
[2019-01-29 11:27] LABS: WHITE BLOOD COUNT 4.6 10^3/ul (4.8-10.8)
[2019-01-29 11:29] LABS: ADD MAN DIFF? YES
[2019-01-29 12:37] LABS: URIC ACID 5.1 mg/dl (3.1-7.9)
[2019-01-29 12:42] LABS: SODIUM 126 mmol/L (135-144)
[2019-01-29 12:43] LABS: ANISOCYTOSIS 1+ (0-0); BAND NEUTROPHILS #M 0.2 10^3/ul (0.0-0.6); BAND NEUTROPHILS % (M) 6 % (0-4); BASOPHILS % (M) 2 % (0-2); BURR CELLS 1+ (0-0); GIANT THROMBO% (M) 3 % (0-0); LYMPHOCYTES #M 0.6 10^3/ul (0.8-2.9); LYMPHOCYTES % (M) 14 % (15-51); MICROCYTOSIS 1+ (0-0); MONOCYTES % (M) 2 % (0-11); OVALOCYTES 1+ (0-0); PLATELET ESTIMATE DECREASED; POIKILOCYTOSIS 1+ (0-0); POLYCHROMASIA 1+ (0-0); REACTIVE LYMPHOCYTES% (M) 1 % (0-0); SEG NEUT #M 3.5 10^3/ul (1.6-7.5); SEGMENTED NEUTROPHILS (M) % 75 % (39-77); SMUDGE%M 37 % (0-0)
[2019-01-29] MEDS: morphine 2 MG INJ IV (15:07)
[2019-01-29 15:52] LABS: ADD UMIC NO; UR ASCORBIC ACID 40 mg/dL (NEGATIVE); UR BILIRUBIN (Dip) NEGATIVE (NEGATIVE); UR BLOOD (Dip) NEGATIVE (NEGATIVE); UR CLARITY CLEAR (CLEAR); UR COLOR YELLOW (YELLOW); UR GLUCOSE (Dip) NEGATIVE (NEGATIVE); UR KETONES (Dip) NEGATIVE (NEGATIVE); UR LEUKOCYTE ESTERASE (Dip) NEGATIVE Leu/ul (NEGATIVE); UR NITRITE (Dip) NEGATIVE (NEGATIVE); UR SPECIFIC GRAVITY (Dip) 1.012 (1.003-1.030); UR TOTAL PROTEIN (Dip) NEGATIVE (NEGATIVE); UR UROBILINOGEN (Dip) NEGATIVE (NEGATIVE)
[2019-01-29 16:18] LABS: SODIUM,URINE RANDOM 28 mmol/L (30-90)
[2019-01-29 16:18] LABS: CREATININE,URINE RANDOM 58.39 mg/dl (20-370)
[2019-01-29 17:05] LABS: OSMOLALITY,URINE 269 mOsm/kg (250-1200)
[2019-01-29] MEDS: ATORVASTATIN 10 MG TAB PO (21:22)
[2019-01-29 23:48] LABS: HEPARIN INDUCED PLATELET AB NEGATIVE (NEGATIVE)
[2019-01-30] MEDS: morphine 2 MG INJ IV ×4 (03:07→18:33)
[2019-01-30] MEDS: HYDROCODONE/APAP (5/325) TAB PO ×2 (04:54→22:55)
[2019-01-30] MEDS: FUROSEMIDE 20 MG INJ IV (05:43)
[2019-01-30] MEDS: METOPROLOL 50 MG TAB PO ×3 (05:44→22:54)
[2019-01-30] MEDS: PANTOPRAZOLE (EC) 40 MG TAB PO ×2 (05:45→17:58)
[2019-01-30] MEDS: INSULIN ASPART [NOVOLOG] 3 ML PEN SC ×4 (07:55→21:00)
[2019-01-30 08:47] LABS: ANION GAP 8 (5-13); BLOOD UREA NITROGEN 7 mg/dl (7-20); CALCIUM 8.4 mg/dl (8.4-10.2); CARBON DIOXIDE 24 mmol/L (21-31); CHLORIDE 95 mmol/L (97-110); Estimated GFR > 60 mL/min (>60); GLUCOSE 105 mg/dl (70-220); POTASSIUM 3.8 mmol/L (3.5-5.1); SODIUM 127 mmol/L (135-144)
[2019-01-30] MEDS: SODIUM CHLORIDE 1 GM TAB PO ×3 (09:20→22:55)
[2019-01-30] MEDS: SENNA TAB PO ×2 (09:20→22:55)
[2019-01-30] MEDS: INSULIN GLARGINE [LANTus] (100 UNITS/ML) SYG SC (09:25)
[2019-01-30 09:39] LABS: ERYTHROCYTE SEDIMENTATION RATE 55 mm/Hr (0-20)
[2019-01-30] MEDS: BISMUTH SUBSALICYLATE 240 ML BTL PO ×4 (10:38→21:00)
[2019-01-30] MEDS: IOHEXOL 14.3 MG(I)/ML (ADULT) BTL PO (20:06)
[2019-01-30] MEDS: IOHEXOL 300MG/ML 150 ML BTL (22:47)
[2019-01-30] MEDS: SOD CHLORIDE 0.9% 100 ML (22:47)
[2019-01-30] MEDS: ATORVASTATIN 10 MG TAB PO (22:55)
[2019-01-30] MEDS: GLUCOSE GEL 15 GRAM TUBE BUCCAL (23:24)
[2019-01-31] MEDS: SOD CHLORIDE 0.9% 250 ML IV (00:06)
[2019-01-31 00:21] LABS: HEPARIN INDUCED PLATELET AB NEGATIVE (NEGATIVE)
[2019-01-31] MEDS: ALBUMIN HUMAN 25% 100 ML IV (02:58)
[2019-01-31] MEDS: METOPROLOL 50 MG TAB PO ×3 (06:00→22:05)
[2019-01-31] MEDS: PANTOPRAZOLE (EC) 40 MG TAB PO ×2 (06:54→18:59)
[2019-01-31] MEDS: HYDROCODONE/APAP (5/325) TAB PO ×2 (06:54→14:08)
[2019-01-31] MEDS: INSULIN ASPART [NOVOLOG] 3 ML PEN SC ×5 (07:55→21:00)
[2019-01-31 08:29] LABS: WHITE BLOOD COUNT 4.9 10^3/ul (4.8-10.8)
[2019-01-31 08:29] LABS: HEMATOCRIT 28.7 % (42.0-52.0); HEMOGLOBIN 9.1 g/dl (14.0-18.0); MEAN CORPUSCULAR HEMOGLOBIN 24.5 pg (29.0-33.0); MEAN CORPUSCULAR HGB CONC 31.7 g/dl (32.0-37.0); MEAN CORPUSCULAR VOLUME 77.4 fl (82.0-101.0); MEAN PLATELET VOLUME 9.1 fl (7.4-10.4); PLATELET COUNT 116 10^3/UL (140-415); POSITIVE DIFF @See below; RED BLOOD COUNT 3.71 10^6/ul (4.70-6.10); RED CELL DISTRIBUTION WIDTH 20.2 % (11.5-14.5)
[2019-01-31 08:51] LABS: ADD MAN DIFF? YES
[2019-01-31 08:53] LABS: ALANINE AMINOTRANSFERASE 24 IU/L (13-69); ALBUMIN 2.3 g/dl (3.3-4.9); ALBUMIN/GLOBULIN RATIO 0.65; ALKALINE PHOSPHATASE 168 IU/L (42-121); ANION GAP 10 (5-13); ASPARTATE AMINO TRANSFERASE 68 IU/L (15-46); BILIRUBIN,INDIRECT 0.4 mg/dl (0-1.1); BILIRUBIN,TOTAL 0.4 mg/dl (0.2-1.3); BLOOD UREA NITROGEN 8 mg/dl (7-20); CALCIUM 8.7 mg/dl (8.4-10.2); CARBON DIOXIDE 23 mmol/L (21-31); CHLORIDE 94 mmol/L (97-110); CREATININE 0.58 mg/dl (0.61-1.24); Estimated GFR > 60 mL/min (>60); GLUCOSE 76 mg/dl (70-220); POTASSIUM 4.1 mmol/L (3.5-5.1); SODIUM 127 mmol/L (135-144); TOTAL PROTEIN 5.8 g/dl (6.1-8.1)
[2019-01-31] MEDS: BISMUTH SUBSALICYLATE 240 ML BTL PO ×4 (09:00→20:58)
[2019-01-31] MEDS: INSULIN GLARGINE [LANTus] (100 UNITS/ML) SYG SC (09:30)
[2019-01-31 10:31] LABS: ANISOCYTOSIS 1+ (0-0); BURR CELLS 1+ (0-0); EOSINOPHILS % (M) 1 % (0-7); GIANT THROMBO% (M) 1 % (0-0); HYPOCHROMASIA 1+ (0-0); LYMPHOCYTES #M 0.7 10^3/ul (0.8-2.9); LYMPHOCYTES % (M) 16 % (15-51); MICROCYTOSIS 1+ (0-0); MONOCYTE #M 0.7 10^3/ul (0.3-0.9); MONOCYTES % (M) 15 % (0-11); PLATELET ESTIMATE DECREASED; POIKILOCYTOSIS 2+ (0-0); POLYCHROMASIA 1+ (0-0); REACTIVE LYMPHOCYTES% (M) 1 % (0-0); SEGMENTED NEUTROPHILS (M) % 67 % (39-77); SMUDGE%M 33 % (0-0)
[2019-01-31] MEDS: SODIUM CHLORIDE 1 GM TAB PO ×3 (10:31→20:58)
[2019-01-31] MEDS: SENNA TAB PO ×2 (10:31→20:58)
[2019-01-31] MEDS: FUROSEMIDE 20 MG INJ IV ×2 (12:07→17:33)
[2019-01-31] MEDS: MIDODRINE 5 MG TAB PO ×2 (14:07→17:33)
[2019-01-31] MEDS: ATORVASTATIN 10 MG TAB PO (20:58)
[2019-02-01] MEDS: METOPROLOL 50 MG TAB PO ×3 (05:24→22:00)
[2019-02-01] MEDS: FUROSEMIDE 20 MG INJ IV ×2 (05:24→17:47)
[2019-02-01] MEDS: PANTOPRAZOLE (EC) 40 MG TAB PO ×2 (05:24→17:49)
[2019-02-01] MEDS: INSULIN ASPART [NOVOLOG] 3 ML PEN SC ×7 (07:55→20:48)
[2019-02-01 08:27] LABS: SODIUM,URINE RANDOM 91 mmol/L (30-90)
[2019-02-01] MEDS: SODIUM CHLORIDE 1 GM TAB PO ×3 (08:51→20:42)
[2019-02-01] MEDS: SENNA TAB PO ×2 (08:51→20:43)
[2019-02-01] MEDS: MIDODRINE 5 MG TAB PO ×3 (08:52→17:47)
[2019-02-01] MEDS: BISMUTH SUBSALICYLATE 240 ML BTL PO ×4 (08:53→20:43)
[2019-02-01] MEDS: INSULIN GLARGINE [LANTus] (100 UNITS/ML) SYG SC (08:58)
[2019-02-01 09:50] LABS: OSMOLALITY,URINE 336 mOsm/kg (250-1200)
[2019-02-01 15:01] LABS: CREATININE, RANDOM URINE 62 mg/dL (20-320); MICROALBUMIN 0.6 mg/dL; MICROALBUMIN/CREATININE RATIO 10 (<30)
[2019-02-01] MEDS: FERROUS SULFATE (EC) 325 MG TAB PO (20:42)
[2019-02-01] MEDS: ASCORBIC ACID 500 MG TAB PO (20:42)
[2019-02-01] MEDS: ATORVASTATIN 10 MG TAB PO (20:42)
[2019-02-02] MEDS: METOPROLOL 50 MG TAB PO ×3 (06:00→21:51)
[2019-02-02 06:07] LABS: HEMATOCRIT 25.8 % (42.0-52.0); HEMOGLOBIN 8.3 g/dl (14.0-18.0); MEAN CORPUSCULAR HEMOGLOBIN 24.1 pg (29.0-33.0); MEAN CORPUSCULAR HGB CONC 32.2 g/dl (32.0-37.0); MEAN CORPUSCULAR VOLUME 74.8 fl (82.0-101.0); MEAN PLATELET VOLUME 8.7 fl (7.4-10.4); PLATELET COUNT 122 10^3/UL (140-415); POSITIVE DIFF @See below; RED BLOOD COUNT 3.45 10^6/ul (4.70-6.10); RED CELL DISTRIBUTION WIDTH 20.1 % (11.5-14.5)
[2019-02-02 06:07] LABS: WHITE BLOOD COUNT 5.1 10^3/ul (4.8-10.8)
[2019-02-02] MEDS: FUROSEMIDE 20 MG INJ IV ×2 (06:18→17:43)
[2019-02-02] MEDS: PANTOPRAZOLE (EC) 40 MG TAB PO ×2 (06:18→17:40)
[2019-02-02 06:20] LABS: ADD MAN DIFF? YES
[2019-02-02 06:35] LABS: ANION GAP 4 (5-13); BLOOD UREA NITROGEN 9 mg/dl (7-20); CALCIUM 8.5 mg/dl (8.4-10.2); CARBON DIOXIDE 29 mmol/L (21-31); CHLORIDE 94 mmol/L (97-110); CREATININE 0.66 mg/dl (0.61-1.24); Estimated GFR > 60 mL/min (>60); GLUCOSE 67 mg/dl (70-220); MAGNESIUM 1.2 mg/dl (1.7-2.5); PHOSPHORUS 3.8 mg/dl (2.5-4.9); POTASSIUM 3.5 mmol/L (3.5-5.1); SODIUM 127 mmol/L (135-144)
[2019-02-02 07:21] LABS: ANISOCYTOSIS 1+ (0-0); BASOPHIL #M 0.1 10^3/ul (0.0-0.0); BASOPHILS % (M) 3 % (0-2); ERYTHROBLAST% (NRBC) (M) 1 % (0-0); GIANT THROMBO% (M) 2 % (0-0); LYMPHOCYTES #M 1.3 10^3/ul (0.8-2.9); LYMPHOCYTES % (M) 27 % (15-51); MICROCYTOSIS 1+ (0-0); MONOCYTE #M 0.4 10^3/ul (0.3-0.9); MONOCYTES % (M) 9 % (0-11); PLATELET ESTIMATE DECREASED; POIKILOCYTOSIS 1+ (0-0); REACTIVE LYMPHOCYTES #M 0.1 10^3/ul (0.0-0.0); REACTIVE LYMPHOCYTES% (M) 3 % (0-0); SEGMENTED NEUTROPHILS (M) % 58 % (39-77); SMUDGE%M 83 % (0-0); SPHEROCYTES 1+ (0-0)
[2019-02-02] MEDS: INSULIN ASPART [NOVOLOG] 3 ML PEN SC ×7 (07:55→21:00)
[2019-02-02] MEDS: ASCORBIC ACID 500 MG TAB PO ×2 (08:04→21:49)
[2019-02-02] MEDS: FERROUS SULFATE (EC) 325 MG TAB PO ×2 (08:04→21:50)
[2019-02-02] MEDS: SENNA TAB PO ×2 (08:04→21:49)
[2019-02-02] MEDS: SODIUM CHLORIDE 1 GM TAB PO ×3 (08:05→21:49)
[2019-02-02] MEDS: MIDODRINE 5 MG TAB PO ×3 (09:31→17:45)
[2019-02-02] MEDS: INSULIN GLARGINE [LANTus] (100 UNITS/ML) SYG SC (10:18)
[2019-02-02] MEDS: BISMUTH SUBSALICYLATE 240 ML BTL PO ×4 (10:28→21:00)
[2019-02-02] MEDS: ACETAMINOPHEN 325 MG TAB PO (13:53)
[2019-02-02] MEDS: MAGNESIUM SULFATE 4 GM/100 ML 100 ML IVPB (15:54)
[2019-02-02] MEDS: ATORVASTATIN 10 MG TAB PO (21:49)
[2019-02-02] MEDS: METHIMAZOLE 5 MG TAB PO (21:50)
[2019-02-03] MEDS: METOPROLOL 50 MG TAB PO ×3 (05:17→21:38)
[2019-02-03] MEDS: PANTOPRAZOLE (EC) 40 MG TAB PO ×3 (05:17→18:29)
[2019-02-03] MEDS: FUROSEMIDE 20 MG INJ IV ×2 (05:18→17:30)
[2019-02-03 06:52] LABS: WHITE BLOOD COUNT 4.4 10^3/ul (4.8-10.8)
[2019-02-03 06:52] LABS: HEMOGLOBIN 9.3 g/dl (14.0-18.0); MEAN CORPUSCULAR HEMOGLOBIN 23.8 pg (29.0-33.0); MEAN CORPUSCULAR VOLUME 76.9 fl (82.0-101.0); MEAN PLATELET VOLUME 9.7 fl (7.4-10.4); PLATELET COUNT 136 10^3/UL (140-415); POSITIVE DIFF @See below; RED CELL DISTRIBUTION WIDTH 20.9 % (11.5-14.5)
[2019-02-03 06:55] LABS: ADD MAN DIFF? YES
[2019-02-03 07:17] LABS: ANION GAP 8 (5-13); BLOOD UREA NITROGEN 9 mg/dl (7-20); CALCIUM 8.2 mg/dl (8.4-10.2); CARBON DIOXIDE 26 mmol/L (21-31); CHLORIDE 94 mmol/L (97-110); CREATININE 0.65 mg/dl (0.61-1.24); Estimated GFR > 60 mL/min (>60); GLUCOSE 133 mg/dl (70-220); MAGNESIUM 1.6 mg/dl (1.7-2.5); PHOSPHORUS 3.6 mg/dl (2.5-4.9); POTASSIUM 3.8 mmol/L (3.5-5.1); SODIUM 128 mmol/L (135-144)
[2019-02-03] MEDS: INSULIN ASPART [NOVOLOG] 3 ML PEN SC ×7 (07:55→21:00)
[2019-02-03] MEDS: MIDODRINE 5 MG TAB PO ×4 (08:06→18:29)
[2019-02-03] MEDS: SENNA TAB PO ×2 (08:07→21:36)
[2019-02-03] MEDS: SODIUM CHLORIDE 1 GM TAB PO ×3 (08:07→21:36)
[2019-02-03] MEDS: ASCORBIC ACID 500 MG TAB PO ×2 (08:07→21:36)
[2019-02-03] MEDS: FERROUS SULFATE (EC) 325 MG TAB PO ×2 (08:07→21:36)
[2019-02-03] MEDS: ACETAMINOPHEN 325 MG TAB PO (08:08)
[2019-02-03] MEDS: BISMUTH SUBSALICYLATE 240 ML BTL PO ×4 (08:08→21:37)
[2019-02-03 09:15] LABS: ANISOCYTOSIS 1+ (0-0); BAND NEUTROPHILS #M 0.1 10^3/ul (0.0-0.6); BAND NEUTROPHILS % (M) 4 % (0-4); LYMPHOCYTES #M 0.7 10^3/ul (0.8-2.9); LYMPHOCYTES % (M) 16 % (15-51); MICROCYTOSIS 1+ (0-0); MONOCYTE #M 0.2 10^3/ul (0.3-0.9); MONOCYTES % (M) 6 % (0-11); OVALOCYTES 1+ (0-0); PLATELET ESTIMATE NORMAL; POIKILOCYTOSIS 2+ (0-0); POLYCHROMASIA 1+ (0-0); REACTIVE LYMPHOCYTES% (M) 1 % (0-0); SEG NEUT #M 3.2 10^3/ul (1.6-7.5); SEGMENTED NEUTROPHILS (M) % 73 % (39-77); SMUDGE%M 39 % (0-0)
[2019-02-03] MEDS: METHIMAZOLE 5 MG TAB PO ×2 (09:34→21:36)
[2019-02-03] MEDS: ONDANSETRON 4 MG INJ IV (09:34)
[2019-02-03] MEDS: MAGNESIUM SULFATE 2 GM/50 ML 50 ML IVPB (09:37)
[2019-02-03] MEDS: INSULIN GLARGINE [LANTus] (100 UNITS/ML) SYG SC (10:18)
[2019-02-03 16:54] LABS: HAAIG REFLEX REFLEX FILED
[2019-02-03] MEDS: DEXTROSE 50% 50 ML SYRINGE IV (17:21)
[2019-02-03 17:23] LABS: LACTIC ACID 3.8 mmol/L (0.5-2.0)
[2019-02-03 18:10] LABS: ERYTHROCYTE SEDIMENTATION RATE 60 mm/Hr (0-20)
[2019-02-03 18:15] LABS: HEPATITIS B SURFACE ANTIGEN NEGATIVE (NEGATIVE)
[2019-02-03 18:32] LABS: HEPATITIS B CORE ANTIBODY NEGATIVE (NEGATIVE); HEPATITIS C VIRAL ANTIBODY NEGATIVE (NEGATIVE)
[2019-02-03 20:30] LABS: LACTIC ACID 3.9 mmol/L (0.5-2.0)
[2019-02-03 21:24] LABS: LACTATE DEHYDROGENASE 3388 IU/L (313-618)
[2019-02-03] MEDS: ATORVASTATIN 10 MG TAB PO (21:36)
[2019-02-04 04:09] LABS: CHOL/HDL RATIO 10.1 RATIO; HDL CHOLESTEROL 12 mg/dl (28-71); LDL CHOLESTEROL,CALCULATED 59 mg/dl; TRIGLYCERIDES 254 mg/dl (0-149)
[2019-02-04 04:09] LABS: CHOLESTEROL 122 mg/dl (100-200)
[2019-02-04] MEDS: SOD CHLORIDE 0.9% 500 ML IV (04:45)
[2019-02-04] MEDS: FUROSEMIDE 20 MG INJ IV (06:00)
[2019-02-04] MEDS: METOPROLOL 50 MG TAB PO ×3 (06:00→21:01)
[2019-02-04] MEDS: PANTOPRAZOLE (EC) 40 MG TAB PO ×2 (06:01→18:08)
[2019-02-04] MEDS: INSULIN ASPART [NOVOLOG] 3 ML PEN SC ×7 (07:55→20:42)
[2019-02-04] MEDS: SODIUM CHLORIDE 1 GM TAB PO ×2 (09:22→13:07)
[2019-02-04] MEDS: ASCORBIC ACID 500 MG TAB PO ×2 (09:22→20:44)
[2019-02-04] MEDS: SENNA TAB PO ×2 (09:22→20:43)
[2019-02-04] MEDS: BISMUTH SUBSALICYLATE 240 ML BTL PO ×4 (09:23→20:53)
[2019-02-04] MEDS: METHIMAZOLE 5 MG TAB PO ×2 (09:23→20:43)
[2019-02-04] MEDS: FERROUS SULFATE (EC) 325 MG TAB PO ×2 (09:23→20:44)
[2019-02-04] MEDS: MIDODRINE 5 MG TAB PO ×3 (09:35→17:07)
[2019-02-04] MEDS: INSULIN GLARGINE [LANTus] (100 UNITS/ML) SYG SC (09:55)
[2019-02-04 09:59] LABS: LACTIC ACID 5.6 mmol/L (0.5-2.0)
[2019-02-04 12:06] LABS: PROCALCITONIN 0.11 ng/mL (<0.10)
[2019-02-04 12:56] LABS: NIL 0.15 IU/mL; QUANTIFERON(R)-TB GOLD NEGATIVE (NEGATIVE); TB-NIL 0.27 IU/mL; TB2-NIL 0.32 IU/mL
[2019-02-04] MEDS: MAGNESIUM CITRATE 300 ML BTL PO (14:20)
[2019-02-04 14:50] LABS: LACTIC ACID 4.7 mmol/L (0.5-2.0)
[2019-02-04 17:22] LABS: ADD UMIC NO; UR ASCORBIC ACID 40 mg/dL (NEGATIVE); UR BILIRUBIN (Dip) NEGATIVE (NEGATIVE); UR BLOOD (Dip) NEGATIVE (NEGATIVE); UR CLARITY CLEAR (CLEAR); UR COLOR YELLOW (YELLOW); UR GLUCOSE (Dip) NEGATIVE (NEGATIVE); UR KETONES (Dip) NEGATIVE (NEGATIVE); UR LEUKOCYTE ESTERASE (Dip) NEGATIVE Leu/ul (NEGATIVE); UR NITRITE (Dip) NEGATIVE (NEGATIVE); UR SPECIFIC GRAVITY (Dip) 1.014 (1.003-1.030); UR TOTAL PROTEIN (Dip) NEGATIVE (NEGATIVE); UR UROBILINOGEN (Dip) NEGATIVE (NEGATIVE)
[2019-02-04] MEDS: FUROSEMIDE 20 MG TAB PO (18:08)
[2019-02-04] MEDS: SPIRONOLACTONE 50 MG TAB PO (18:08)
[2019-02-04 18:47] LABS: INR 1.19; PROTIME 15.2 Sec (11.9-14.9); PT RATIO 1.2
[2019-02-04 18:48] LABS: PARTIAL THROMBOPLASTIN TIME 41.3 Sec (23.0-35.0)
[2019-02-04] MEDS: ATORVASTATIN 10 MG TAB PO (20:44)
[2019-02-04] MEDS: DOCUSATE SODIUM 100 MG CAP PO (20:44)
[2019-02-04 22:19] LABS: RAPID PLASMA REAGIN NONREACTIVE (NR)
[2019-02-04 22:21] LABS: RHEUMATOID FACTOR NEGATIVE (NEGATIVE)
[2019-02-05] MEDS: SPIRONOLACTONE 50 MG TAB PO ×2 (05:28→18:13)
[2019-02-05] MEDS: PANTOPRAZOLE (EC) 40 MG TAB PO ×2 (05:28→18:12)
[2019-02-05] MEDS: METOPROLOL 50 MG TAB PO ×3 (05:28→22:00)
[2019-02-05] MEDS: FUROSEMIDE 20 MG TAB PO ×2 (05:28→18:13)
[2019-02-05] MEDS: INSULIN ASPART [NOVOLOG] 3 ML PEN SC ×7 (07:39→20:42)
[2019-02-05 08:09] LABS: ADD MAN DIFF? NO
[2019-02-05 08:24] LABS: WHITE BLOOD COUNT 5.8 10^3/ul (4.8-10.8)
[2019-02-05 08:24] LABS: BASOPHILS % 0.7 % (0.0-2.0); EOSINOPHILS % 0.2 % (0.0-7.0); HEMATOCRIT 28.8 % (42.0-52.0); HEMOGLOBIN 9.2 g/dl (14.0-18.0); LYMPHOCYTES # 1.4 10^3/ul (0.8-2.9); LYMPHOCYTES % 24.7 % (15.0-51.0); MEAN CORPUSCULAR HEMOGLOBIN 24.4 pg (29.0-33.0); MEAN CORPUSCULAR HGB CONC 31.9 g/dl (32.0-37.0); MEAN CORPUSCULAR VOLUME 76.4 fl (82.0-101.0); MEAN PLATELET VOLUME 10.2 fl (7.4-10.4); MONOCYTE # 1.4 10^3/ul (0.3-0.9); NEUTROPHIL # 2.8 10^3/ul (1.6-7.5); NEUTROPHILS % 48.5 % (39.0-77.0); PLATELET COUNT 167 10^3/UL (140-415); RED BLOOD COUNT 3.77 10^6/ul (4.70-6.10); RED CELL DISTRIBUTION WIDTH 21.1 % (11.5-14.5)
[2019-02-05 08:32] LABS: AMMONIA 12 umol/l (9-30)
[2019-02-05 08:34] LABS: ANION GAP 7 (5-13); BLOOD UREA NITROGEN 10 mg/dl (7-20); CALCIUM 8.5 mg/dl (8.4-10.2); CARBON DIOXIDE 28 mmol/L (21-31); CHLORIDE 94 mmol/L (97-110); CREATININE 0.69 mg/dl (0.61-1.24); Estimated GFR > 60 mL/min (>60); GLUCOSE 87 mg/dl (70-220); MAGNESIUM 1.6 mg/dl (1.7-2.5); PHOSPHORUS 3.4 mg/dl (2.5-4.9); POTASSIUM 4.2 mmol/L (3.5-5.1); SODIUM 129 mmol/L (135-144)
[2019-02-05] MEDS: FERROUS SULFATE (EC) 325 MG TAB PO ×2 (09:22→20:36)
[2019-02-05] MEDS: MIDODRINE 5 MG TAB PO ×3 (09:22→18:17)
[2019-02-05] MEDS: BISMUTH SUBSALICYLATE 240 ML BTL PO ×4 (09:22→20:36)
[2019-02-05] MEDS: ASCORBIC ACID 500 MG TAB PO ×2 (09:23→20:35)
[2019-02-05] MEDS: DOCUSATE SODIUM 100 MG CAP PO ×2 (09:23→20:36)
[2019-02-05] MEDS: SENNA TAB PO ×2 (09:23→20:35)
[2019-02-05] MEDS: INSULIN GLARGINE [LANTus] (100 UNITS/ML) SYG SC (09:30)
[2019-02-05] MEDS: METHIMAZOLE 5 MG TAB PO ×2 (10:57→20:35)
[2019-02-05] MEDS: CEFTRIAXONE 1 GM/50 ML (PMX) 50 ML IVPB (15:34)
[2019-02-05] MEDS: LIDOCAINE 1% (MPF) 5 ML VIAL (17:31)
[2019-02-05 19:27] LABS: FLD PMN% 6.2 %; FLD RBC 0 /uL; FLD WBC 32 /cmm
[2019-02-05 19:44] LABS: FLUID GLUCOSE 88 mg/dl; FLUID TOTAL PROTEIN < 2.0 g/dl; FLUID TYPE THORACENTESIS FLUID
[2019-02-05 19:45] LABS: FLUID LD 512 U/L; FLUID TYPE THORACENTESIS FLUID
[2019-02-05] MEDS: ATORVASTATIN 10 MG TAB PO (20:35)
[2019-02-05] MEDS: ACETAMINOPHEN 325 MG TAB PO (20:48)
[2019-02-05 22:49] LABS: FLD CLARITY HAZY; FLD COLOR YELLOW; FLD MN% 93.8 %
[2019-02-05 22:49] LABS: FLD TYPE THORACENTHESIS
[2019-02-06] MEDS: METOPROLOL 50 MG TAB PO ×3 (05:28→22:00)
[2019-02-06] MEDS: FUROSEMIDE 20 MG TAB PO ×2 (05:29→17:56)
[2019-02-06] MEDS: SPIRONOLACTONE 50 MG TAB PO ×2 (05:29→17:56)
[2019-02-06] MEDS: PANTOPRAZOLE (EC) 40 MG TAB PO ×2 (05:30→17:56)
[2019-02-06] MEDS: INSULIN ASPART [NOVOLOG] 3 ML PEN SC ×7 (07:55→21:00)
[2019-02-06] MEDS: MIDODRINE 5 MG TAB PO ×4 (09:00→17:55)
[2019-02-06] MEDS: ASCORBIC ACID 500 MG TAB PO ×2 (09:12→21:07)
[2019-02-06] MEDS: FERROUS SULFATE (EC) 325 MG TAB PO ×2 (09:13→21:05)
[2019-02-06] MEDS: DOCUSATE SODIUM 100 MG CAP PO ×2 (09:13→21:05)
[2019-02-06] MEDS: METHIMAZOLE 5 MG TAB PO ×2 (09:13→21:07)
[2019-02-06] MEDS: SENNA TAB PO ×2 (09:13→21:06)
[2019-02-06] MEDS: BISMUTH SUBSALICYLATE 240 ML BTL PO ×4 (09:14→21:06)
[2019-02-06 09:44] LABS: ANION GAP 7 (5-13); BLOOD UREA NITROGEN 13 mg/dl (7-20); CARBON DIOXIDE 30 mmol/L (21-31); CHLORIDE 93 mmol/L (97-110); CREATININE 0.76 mg/dl (0.61-1.24); Estimated GFR > 60 mL/min (>60); GLUCOSE 85 mg/dl (70-220); MAGNESIUM 1.7 mg/dl (1.7-2.5); PHOSPHORUS 4.2 mg/dl (2.5-4.9); POTASSIUM 5.1 mmol/L (3.5-5.1); SODIUM 130 mmol/L (135-144)
[2019-02-06] MEDS: INSULIN GLARGINE [LANTus] (100 UNITS/ML) SYG SC (10:02)
[2019-02-06] MEDS: ONDANSETRON 4 MG INJ IV ×2 (10:08→22:50)
[2019-02-06] MEDS: ALBUMIN HUMAN 25% 100 ML IV (10:46)
[2019-02-06] MEDS: CEFEPIME 1GM/50 ML (PMX) 50 ML IVPB ×2 (13:54→21:05)
[2019-02-06] MEDS: ATORVASTATIN 10 MG TAB PO (21:06)
[2019-02-07] MEDS: FUROSEMIDE 20 MG TAB PO ×2 (05:57→17:39)
[2019-02-07] MEDS: SPIRONOLACTONE 50 MG TAB PO ×2 (05:57→17:38)
[2019-02-07] MEDS: METOPROLOL 50 MG TAB PO ×3 (05:58→21:09)
[2019-02-07] MEDS: PANTOPRAZOLE (EC) 40 MG TAB PO ×2 (05:58→17:47)
[2019-02-07 07:38] LABS: ANION GAP 9 (5-13); BLOOD UREA NITROGEN 11 mg/dl (7-20); CALCIUM 9.1 mg/dl (8.4-10.2); CARBON DIOXIDE 27 mmol/L (21-31); CHLORIDE 94 mmol/L (97-110); CREATININE 0.72 mg/dl (0.61-1.24); Estimated GFR > 60 mL/min (>60); GLUCOSE 105 mg/dl (70-220); MAGNESIUM 1.6 mg/dl (1.7-2.5); PHOSPHORUS 3.9 mg/dl (2.5-4.9); POTASSIUM 4.3 mmol/L (3.5-5.1); SODIUM 130 mmol/L (135-144)
[2019-02-07] MEDS: INSULIN ASPART [NOVOLOG] 3 ML PEN SC ×7 (07:55→21:00)
[2019-02-07] MEDS: FERROUS SULFATE (EC) 325 MG TAB PO ×2 (08:44→21:08)
[2019-02-07] MEDS: ASCORBIC ACID 500 MG TAB PO ×2 (08:44→21:08)
[2019-02-07] MEDS: MIDODRINE 5 MG TAB PO ×3 (08:44→17:47)
[2019-02-07] MEDS: DOCUSATE SODIUM 100 MG CAP PO ×2 (08:44→21:08)
[2019-02-07] MEDS: CEFEPIME 1GM/50 ML (PMX) 50 ML IVPB ×2 (08:45→21:06)
[2019-02-07] MEDS: BISMUTH SUBSALICYLATE 240 ML BTL PO ×4 (08:45→21:10)
[2019-02-07] MEDS: SENNA TAB PO ×2 (08:45→21:08)
[2019-02-07] MEDS: METHIMAZOLE 5 MG TAB PO ×2 (08:45→21:07)
[2019-02-07] MEDS: INSULIN GLARGINE [LANTus] (100 UNITS/ML) SYG SC (08:55)
[2019-02-07] MEDS: MAGNESIUM SULFATE 2 GM/50 ML 50 ML IVPB (12:05)
[2019-02-07] MEDS: ATORVASTATIN 10 MG TAB PO (21:08)
[2019-02-07] MEDS: ACETAMINOPHEN 325 MG TAB PO (22:09)
[2019-02-08] MEDS: METOPROLOL 50 MG TAB PO ×2 (06:00→09:14)
[2019-02-08] MEDS: FUROSEMIDE 20 MG TAB PO ×2 (06:00→17:57)
[2019-02-08] MEDS: PANTOPRAZOLE (EC) 40 MG TAB PO ×2 (06:28→17:58)
[2019-02-08] MEDS: ACETAMINOPHEN 325 MG TAB PO (06:28)
[2019-02-08] MEDS: SPIRONOLACTONE 50 MG TAB PO ×2 (06:31→17:56)
[2019-02-08 07:11] LABS: PROCALCITONIN 0.14 ng/mL (<0.10)
[2019-02-08] MEDS: INSULIN ASPART [NOVOLOG] 3 ML PEN SC ×7 (07:55→21:00)
[2019-02-08] MEDS: INSULIN GLARGINE [LANTus] (100 UNITS/ML) SYG SC (08:38)
[2019-02-08] MEDS: ASCORBIC ACID 500 MG TAB PO ×2 (09:14→21:36)
[2019-02-08] MEDS: FERROUS SULFATE (EC) 325 MG TAB PO ×2 (09:14→21:36)
[2019-02-08] MEDS: METHIMAZOLE 5 MG TAB PO ×2 (09:15→21:37)
[2019-02-08] MEDS: DOCUSATE SODIUM 100 MG CAP PO ×2 (09:15→21:37)
[2019-02-08] MEDS: SENNA TAB PO ×2 (09:15→21:37)
[2019-02-08] MEDS: CEFEPIME 1GM/50 ML (PMX) 50 ML IVPB ×2 (09:16→21:39)
[2019-02-08] MEDS: BISMUTH SUBSALICYLATE 240 ML BTL PO ×4 (09:28→21:00)
[2019-02-08] MEDS: MIDODRINE 5 MG TAB PO ×3 (09:30→16:51)
[2019-02-08 09:44] LABS: ANION GAP 11 (5-13); BLOOD UREA NITROGEN 9 mg/dl (7-20); CALCIUM 9.2 mg/dl (8.4-10.2); CARBON DIOXIDE 22 mmol/L (21-31); CHLORIDE 95 mmol/L (97-110); CREATININE 0.68 mg/dl (0.61-1.24); Estimated GFR > 60 mL/min (>60); GLUCOSE 87 mg/dl (70-220); MAGNESIUM 1.7 mg/dl (1.7-2.5); POTASSIUM 4.3 mmol/L (3.5-5.1); SODIUM 128 mmol/L (135-144)
[2019-02-08 19:52] LABS: FREE T4 (FREE THYROXINE) 2.09 ng/dl (0.64-1.79)
[2019-02-08 19:52] LABS: FREE T3 2.41 pg/ml (2.77-5.27)
[2019-02-08 20:07] LABS: THYROID STIMULATING HORMONE < 0.015 MIU/L (0.465-4.680)
[2019-02-08] MEDS: ATORVASTATIN 10 MG TAB PO (21:37)
[2019-02-08] MEDS: ONDANSETRON 4 MG INJ IV (23:02)
[2019-02-09] MEDS: ALBUMIN HUMAN 25% 100 ML IV ×2 (01:46→02:59)
[2019-02-09] MEDS: METOCLOPRAMIDE 10 MG INJ IV (03:22)
[2019-02-09] MEDS: MIDODRINE 5 MG TAB PO ×4 (04:18→18:25)
[2019-02-09] MEDS: PANTOPRAZOLE (EC) 40 MG TAB PO ×2 (05:50→18:22)
[2019-02-09] MEDS: ONDANSETRON 4 MG INJ IV (05:50)
[2019-02-09] MEDS: SPIRONOLACTONE 50 MG TAB PO ×3 (05:50→18:07)
[2019-02-09] MEDS: FUROSEMIDE 20 MG TAB PO ×2 (05:50→18:08)
[2019-02-09] MEDS: INSULIN ASPART [NOVOLOG] 3 ML PEN SC ×7 (07:55→21:00)
[2019-02-09] MEDS: PROPOFOL 20 ML (08:00)
[2019-02-09] MEDS: PHENYLephrine (100 MCG/ML) 10ML SYG (08:00)
[2019-02-09] MEDS: INSULIN GLARGINE [LANTus] (100 UNITS/ML) SYG SC (08:39)
[2019-02-09] MEDS: CEFEPIME 1GM/50 ML (PMX) 50 ML IVPB ×2 (08:41→21:28)
[2019-02-09] MEDS: DOCUSATE SODIUM 100 MG CAP PO ×2 (08:41→21:28)
[2019-02-09] MEDS: ASCORBIC ACID 500 MG TAB PO ×2 (08:43→21:28)
[2019-02-09] MEDS: SENNA TAB PO ×2 (08:43→21:28)
[2019-02-09] MEDS: METHIMAZOLE 5 MG TAB PO (08:43)
[2019-02-09] MEDS: FERROUS SULFATE (EC) 325 MG TAB PO ×2 (08:43→21:28)
[2019-02-09 08:52] LABS: WHITE BLOOD COUNT 6.9 10^3/ul (4.8-10.8)
[2019-02-09 08:52] LABS: ABNORMAL IP MESSAGE 1; HEMATOCRIT 28.1 % (42.0-52.0); HEMOGLOBIN 8.8 g/dl (14.0-18.0); MEAN CORPUSCULAR HEMOGLOBIN 24.1 pg (29.0-33.0); MEAN CORPUSCULAR HGB CONC 31.3 g/dl (32.0-37.0); POSITIVE DIFF @See below; RED BLOOD COUNT 3.65 10^6/ul (4.70-6.10); RED CELL DISTRIBUTION WIDTH 22.8 % (11.5-14.5)
[2019-02-09 08:59] LABS: PLATELET COUNT 112 10^3/UL (140-415)
[2019-02-09 09:00] LABS: ADD MAN DIFF? YES
[2019-02-09] MEDS: BISMUTH SUBSALICYLATE 240 ML BTL PO ×4 (09:10→21:28)
[2019-02-09 09:15] LABS: INR 1.36; PROTIME 16.9 Sec (11.9-14.9); PT RATIO 1.3
[2019-02-09 09:20] LABS: LACTIC ACID 3.3 mmol/L (0.5-2.0)
[2019-02-09 09:55] LABS: ANISOCYTOSIS 2+ (0-0); BAND NEUTROPHILS #M 0.2 10^3/ul (0.0-0.6); BAND NEUTROPHILS % (M) 3 % (0-4); ELLIPTO 1+ (0-0); LYMPHOCYTES #M 0.6 10^3/ul (0.8-2.9); LYMPHOCYTES % (M) 9 % (15-51); MICROCYTOSIS 2+ (0-0); MONOCYTE #M 0.6 10^3/ul (0.3-0.9); MONOCYTES % (M) 10 % (0-11); OVALOCYTES 1+ (0-0); PLATELET ESTIMATE DECREASED; POIKILOCYTOSIS 1+ (0-0); POLYCHROMASIA 2+ (0-0); REACTIVE LYMPHOCYTES #M 0.2 10^3/ul (0.0-0.0); REACTIVE LYMPHOCYTES% (M) 4 % (0-0); SEG NEUT #M 5.1 10^3/ul (1.6-7.5); SEGMENTED NEUTROPHILS (M) % 74 % (39-77); SMUDGE%M 22 % (0-0)
[2019-02-09 12:52] LABS: MITOCHONDRIAL TB NEGATIVE (NEGATIVE); SMOOTH MUSCLE AB SCREEN NEGATIVE (NEGATIVE)
[2019-02-09 15:11] LABS: ANCA SCREEN NEGATIVE (NEGATIVE); MYELOPEROXIDASE ANTIBODY <1.0 AI; PROTEINASE-3 ANTIBODY <1.0 AI
[2019-02-09] MEDS ORDERED: FENTAnyl 50 MCG/ML VIAL IV (15:30)
[2019-02-09] MEDS ORDERED: morphine (1 MG/ML) 10ML SYRINGE IV (15:30)
[2019-02-09] MEDS ORDERED: ALBUMIN HUMAN 5% 250 ML IV (15:30)
[2019-02-09] MEDS ORDERED: LABETALOL HCL 20MG INJ IV (15:30)
[2019-02-09] MEDS ORDERED: ONDANSETRON 4 MG INJ IV (15:30)
[2019-02-09] MEDS ORDERED: EPHEDrine SULFATE 50 MG/5 ML SYG IV (15:30)
[2019-02-09] MEDS ORDERED: hydrALAzine 20 MG INJ IV (15:30)
[2019-02-09] MEDS ORDERED: METOCLOPRAMIDE 10 MG INJ IV (15:30)
[2019-02-09 18:21] LABS: IMMUNOGLOBULIN D 13 mg/L (<179)
[2019-02-09] MEDS: ATORVASTATIN 10 MG TAB PO (21:28)
[2019-02-10] MEDS: METHIMAZOLE 5 MG TAB PO ×3 (00:16→21:22)
[2019-02-10] MEDS: PANTOPRAZOLE (EC) 40 MG TAB PO ×2 (05:29→17:57)
[2019-02-10] MEDS: FUROSEMIDE 20 MG TAB PO ×3 (05:29→21:23)
[2019-02-10 06:50] LABS: ANION GAP 5 (5-13); BLOOD UREA NITROGEN 11 mg/dl (7-20); CALCIUM 9.1 mg/dl (8.4-10.2); CARBON DIOXIDE 29 mmol/L (21-31); CHLORIDE 94 mmol/L (97-110); CREATININE 0.82 mg/dl (0.61-1.24); Estimated GFR > 60 mL/min (>60); GLUCOSE 102 mg/dl (70-220); MAGNESIUM 1.7 mg/dl (1.7-2.5); PHOSPHORUS 3.4 mg/dl (2.5-4.9); POTASSIUM 4.4 mmol/L (3.5-5.1); SODIUM 128 mmol/L (135-144)
[2019-02-10] MEDS ORDERED: LIDOCAINE 2% (SDV) 5 ML INJ (07:35)
[2019-02-10] MEDS ORDERED: PROPOFOL 40 ML (07:35)
[2019-02-10] MEDS ORDERED: PHENYLephrine (100 MCG/ML) 10ML SYG (07:51)
[2019-02-10] MEDS: INSULIN ASPART [NOVOLOG] 3 ML PEN SC ×7 (07:55→21:00)
[2019-02-10] MEDS ORDERED: ONDANSETRON 4 MG INJ IV (08:30)
[2019-02-10] MEDS ORDERED: EPHEDrine SULFATE 50 MG/5 ML SYG IV (08:30)
[2019-02-10] MEDS ORDERED: FENTAnyl 50 MCG/ML VIAL IV (08:30)
[2019-02-10] MEDS ORDERED: DIPHENHYDRAMINE 50 MG INJ IV (08:30)
[2019-02-10] MEDS ORDERED: HYDROmorphONE 1 MG/5 ML IV SYRINGE IV ×2 (08:30)
[2019-02-10] MEDS ORDERED: METOCLOPRAMIDE 10 MG INJ IV (08:30)
[2019-02-10] MEDS: CEFEPIME 1GM/50 ML (PMX) 50 ML IVPB ×2 (09:07→21:21)
[2019-02-10] MEDS: SENNA TAB PO ×2 (09:10→21:21)
[2019-02-10] MEDS: DOCUSATE SODIUM 100 MG CAP PO ×2 (09:11→21:21)
[2019-02-10] MEDS: FERROUS SULFATE (EC) 325 MG TAB PO ×2 (09:11→21:22)
[2019-02-10] MEDS: MIDODRINE 5 MG TAB PO ×3 (09:11→17:57)
[2019-02-10] MEDS: ASCORBIC ACID 500 MG TAB PO ×2 (09:11→21:22)
[2019-02-10] MEDS: BISMUTH SUBSALICYLATE 240 ML BTL PO ×4 (09:12→21:31)
[2019-02-10] MEDS: INSULIN GLARGINE [LANTus] (100 UNITS/ML) SYG SC (09:14)
[2019-02-10 17:36] LABS: CARDIOLIPIN AB - IGA <11 APL; CARDIOLIPIN AB - IGG <14 GPL; CARDIOLIPIN AB - IGM <12 MPL
[2019-02-10] MEDS: SPIRONOLACTONE 50 MG TAB PO (17:57)
[2019-02-10] MEDS: ATORVASTATIN 10 MG TAB PO (21:22)
[2019-02-11] MEDS: morphine 2 MG INJ IV ×2 (04:35→09:59)
[2019-02-11] MEDS: PANTOPRAZOLE (EC) 40 MG TAB PO ×2 (06:53→17:20)
[2019-02-11] MEDS: SPIRONOLACTONE 50 MG TAB PO ×2 (06:53→17:20)
[2019-02-11] MEDS: INSULIN ASPART [NOVOLOG] 3 ML PEN SC ×7 (07:55→20:29)
[2019-02-11] MEDS: ASCORBIC ACID 500 MG TAB PO ×2 (09:18→20:35)
[2019-02-11] MEDS: SENNA TAB PO ×2 (09:18→20:30)
[2019-02-11] MEDS: DOCUSATE SODIUM 100 MG CAP PO ×2 (09:18→20:30)
[2019-02-11] MEDS: METHIMAZOLE 5 MG TAB PO ×2 (09:18→20:35)
[2019-02-11] MEDS: FERROUS SULFATE (EC) 325 MG TAB PO ×2 (09:19→20:35)
[2019-02-11] MEDS: FUROSEMIDE 20 MG TAB PO ×2 (09:19→20:36)
[2019-02-11] MEDS: BISMUTH SUBSALICYLATE 240 ML BTL PO ×4 (09:19→20:37)
[2019-02-11] MEDS: MIDODRINE 5 MG TAB PO ×3 (09:26→17:20)
[2019-02-11] MEDS: INSULIN GLARGINE [LANTus] (100 UNITS/ML) SYG SC (09:34)
[2019-02-11] MEDS: CEFEPIME 1GM/50 ML (PMX) 50 ML IVPB ×2 (09:36→20:29)
[2019-02-11] MEDS: ATORVASTATIN 10 MG TAB PO (20:35)
[2019-02-12] MEDS: morphine 2 MG INJ IV (02:28)
[2019-02-12] MEDS: PANTOPRAZOLE (EC) 40 MG TAB PO ×2 (05:36→18:37)
[2019-02-12] MEDS: SPIRONOLACTONE 50 MG TAB PO ×2 (05:36→18:35)
[2019-02-12 07:20] LABS: WHITE BLOOD COUNT 6.6 10^3/ul (4.8-10.8)
[2019-02-12 07:20] LABS: ABNORMAL IP MESSAGE 1; HEMOGLOBIN 10.5 g/dl (14.0-18.0); MEAN CORPUSCULAR HEMOGLOBIN 24.1 pg (29.0-33.0); MEAN CORPUSCULAR HGB CONC 30.9 g/dl (32.0-37.0); MEAN PLATELET VOLUME 8.8 fl (7.4-10.4); PLATELET COUNT 86 10^3/UL (140-415); POSITIVE DIFF @See below; RED BLOOD COUNT 4.36 10^6/ul (4.70-6.10)
[2019-02-12 07:29] LABS: ADD MAN DIFF? YES
[2019-02-12 07:49] LABS: MAGNESIUM 1.6 mg/dl (1.7-2.5)
[2019-02-12 07:49] LABS: PHOSPHORUS 3.2 mg/dl (2.5-4.9)
[2019-02-12 07:50] LABS: ALANINE AMINOTRANSFERASE 16 IU/L (13-69); ALBUMIN 2.1 g/dl (3.3-4.9); ALBUMIN/GLOBULIN RATIO 0.55; ALKALINE PHOSPHATASE 130 IU/L (42-121); ANION GAP 7 (5-13); ASPARTATE AMINO TRANSFERASE 106 IU/L (15-46); BILIRUBIN,INDIRECT 0.5 mg/dl (0-1.1); BILIRUBIN,TOTAL 0.5 mg/dl (0.2-1.3); BLOOD UREA NITROGEN 13 mg/dl (7-20); CALCIUM 9.4 mg/dl (8.4-10.2); CARBON DIOXIDE 28 mmol/L (21-31); CHLORIDE 92 mmol/L (97-110); CREATININE 0.76 mg/dl (0.61-1.24); Estimated GFR > 60 mL/min (>60); GLUCOSE 139 mg/dl (70-220); POTASSIUM 4.7 mmol/L (3.5-5.1); SODIUM 127 mmol/L (135-144); TOTAL PROTEIN 5.9 g/dl (6.1-8.1)
[2019-02-12] MEDS: INSULIN ASPART [NOVOLOG] 3 ML PEN SC ×6 (07:55→17:01)
[2019-02-12] MEDS: ASCORBIC ACID 500 MG TAB PO (08:16)
[2019-02-12] MEDS: DOCUSATE SODIUM 100 MG CAP PO (08:16)
[2019-02-12] MEDS: SENNA TAB PO (08:16)
[2019-02-12] MEDS: FUROSEMIDE 20 MG TAB PO (08:16)
[2019-02-12] MEDS: FERROUS SULFATE (EC) 325 MG TAB PO (08:16)
[2019-02-12] MEDS: CEFEPIME 1GM/50 ML (PMX) 50 ML IVPB (08:17)
[2019-02-12] MEDS: BISMUTH SUBSALICYLATE 240 ML BTL PO ×3 (08:17→16:45)
[2019-02-12] MEDS: MIDODRINE 5 MG TAB PO ×3 (08:20→18:35)
[2019-02-12 08:40] LABS: ANISOCYTOSIS 2+ (0-0); BURR CELLS 1+ (0-0); LYMPHOCYTES #M 0.1 10^3/ul (0.8-2.9); LYMPHOCYTES % (M) 3 % (15-51); METAMYELOCYTES %M 1 % (0-0); MICROCYTOSIS 2+ (0-0); MONOCYTE #M 0.2 10^3/ul (0.3-0.9); MONOCYTES % (M) 4 % (0-11); MYELOCYTES % (M) 1 % (0-0); PLATELET ESTIMATE DECREASED; POIKILOCYTOSIS 2+ (0-0); POLYCHROMASIA 1+ (0-0); SEGMENTED NEUTROPHILS (M) % 91 % (39-77); SMUDGE%M 22 % (0-0)
[2019-02-12] MEDS: MAGNESIUM SULFATE 2 GM/50 ML 50 ML IVPB (09:51)
[2019-02-12] MEDS: METHIMAZOLE 5 MG TAB PO (09:52)
[2019-02-12] MEDS: INSULIN GLARGINE [LANTus] (100 UNITS/ML) SYG SC (10:03)
== END 2019-02-12 19:05 | disposition home health service (06) | DRG 871 ==
LOC: PP2 01-17 17:20 → ICU 01-24 09:47 → E/R 11:41 → TEL 01-24 16:42 → ICU 14:46
PROC: 06HM33Z Insertion of Infusion Device into Right Femoral Vein, Percutaneous Approach (ICD-10-PCS; principal; 2019-02-09 15:05)
PROC: 0W993ZZ Drainage of Right Pleural Cavity, Percutaneous Approach (ICD-10-PCS; 2019-02-09 15:05)
PROC: 07DR3ZX Extraction of Iliac Bone Marrow, Percutaneous Approach, Diagnostic (ICD-10-PCS; 2019-02-09 15:05)
PROC: 0DB68ZX Excision of Stomach, Via Natural or Artificial Opening Endoscopic, Diagnostic (ICD-10-PCS; 2019-02-09 15:05)
PROC: B246ZZ4 Ultrasonography of Right and Left Heart, Transesophageal (ICD-10-PCS; 2019-02-09 15:05)
DX: A41.9 Sepsis, unspecified organism (principal); R65.21 Severe sepsis with septic shock; N39.0 Urinary tract infection, site not specified; E87.1 Hypo-osmolality and hyponatremia; J90 Pleural effusion, not elsewhere classified; D61.818 Other pancytopenia; N17.9 Acute kidney failure, unspecified; B37.0 Candidal stomatitis; I47.1 Supraventricular tachycardia; E22.2 Syndrome of inappropriate secretion of antidiuretic hormone; R18.8 Other ascites; E05.00 Thyrotoxicosis with diffuse goiter without thyrotoxic crisis or storm; I95.9 Hypotension, unspecified; E87.5 Hyperkalemia; D50.9 Iron deficiency anemia, unspecified; B96.81 Helicobacter pylori [H. pylori] as the cause of diseases classified elsewhere; E11.65 Type 2 diabetes mellitus with hyperglycemia; E86.0 Dehydration; K74.60 Unspecified cirrhosis of liver; N45.1 Epididymitis; K14.0 Glossitis; R60.1 Generalized edema; E11.40 Type 2 diabetes mellitus with diabetic neuropathy, unspecified; S90.425A Blister (nonthermal), left lesser toe(s), initial encounter; S90.424A Blister (nonthermal), right lesser toe(s), initial encounter; K20.9 Esophagitis, unspecified; K29.70 Gastritis, unspecified, without bleeding; R50.9 Fever, unspecified; F10.21 Alcohol dependence, in remission; B96.89 Other specified bacterial agents as the cause of diseases classified elsewhere; Z16.24 Resistance to multiple antibiotics
CPT/HCPCS: 36415; 71045; 71260; 74177; 76705; 76870; 76942; 77012; 80048; 80053; 80061; 80076; 81001; 81003; 82043; 82140; 82164; 82270; 82533; 82550; 82607; 82728; 82784; 82945; 82962; 83036; 83540; 83605; 83615; 83735; 83935; 84100; 84145; 84155; 84157; 84295; 84300; 84436; 84439; 84443; 84479; 84481; 84484; 84560; 85014; 85018; 85025; 85384; 85610; 85651; 85730; 86021; 86022; 86038; 86140; 86147; 86255; 86430; 86480; 86592; 86704; 86709; 86803; 87040-91; 87070; 87075; 87081; 87086; 87102; 87116; 87177; 87340; 87400; 87591; 88104; 88305; 88311; 88312; 88313; 88341; 88342; 89051; 92610; 93005; 93306; 93312; 93922; 93970; 96374; 96375; 97110; 97116; 97162; 97164; 97530; 99291-25